=== PATIENT | female | born 1965 | race Caucasian/White ===

== ENCOUNTER 2017-04-28 04:28 | Emergency (ER) | payer MEDICARE, OTHER ==
[~2017-04-28] VITALS: Ht 152.4 cm; Wt 62.0 kg
[2017-04-28 04:30] VITALS: Ht 152.4 cm; Wt 62.0 kg
[2017-04-28 05:52] LABS: BASOPHIL # 0.1 10^3/ul (0.0-0.1); EOSINOPHILS # 0.2 10^3/ul (0.0-0.5); EOSINOPHILS % 4.2 % (0.0-7.0); HEMATOCRIT 31.6 % (37.0-47.0); HEMOGLOBIN 10.3 g/dl (12.0-16.0); LYMPHOCYTES # 0.6 10^3/ul (0.8-2.9); LYMPHOCYTES % 11.5 % (15.0-51.0); MEAN CORPUSCULAR HEMOGLOBIN 29.4 pg (29.0-33.0); MEAN CORPUSCULAR HGB CONC 32.6 g/dl (32.0-37.0); MEAN CORPUSCULAR VOLUME 90.3 fl (82.0-101.0); MEAN PLATELET VOLUME 8.5 fl (7.4-10.4); MONOCYTE # 0.6 10^3/ul (0.3-0.9); MONOCYTES % 10.6 % (0.0-11.0); NEUTROPHILS % 72.3 % (39.0-77.0); PLATELET COUNT 214 10^3/UL (140-415); RED CELL DISTRIBUTION WIDTH 14.3 % (11.5-14.5); WHITE BLOOD COUNT 5.2 10^3/ul (4.8-10.8)
[2017-04-28 06:09] LABS: CALCIUM 10.7 mg/dl (8.4-10.2); CREATININE 5.61 mg/dl (0.44-1.00); POTASSIUM 4.7 mmol/L (3.5-5.1)
[2017-04-28 06:12] LABS: INR 0.91; PROTIME 12.3 Sec (12.2-14.2)
[2017-04-28 06:13] LABS: PARTIAL THROMBOPLASTIN TIME 37.5 Sec (25.0-35.0)
[2017-04-28] MEDS ORDERED: ALPR0.254 PO (06:42)
[2017-04-28] MEDS ORDERED: CLON-379 PO (06:42)
[2017-04-28] MEDS ORDERED: IPRA3AMP INHALATION (06:42)
[2017-04-28] MEDS ORDERED: GABA300C16 PO (06:42)
[2017-04-28] MEDS ORDERED: ISOS30TA5 PO (06:42)
[2017-04-28] MEDS ORDERED: MINO2.5T16 PO (06:42)
[2017-04-28] MEDS ORDERED: AMIT50TA3 PO (06:42)
[2017-04-28] MEDS ORDERED: NIFE60TA36 PO (06:42)
[2017-04-28] MEDS ORDERED: CALC0.255 PO (06:42)
[2017-04-28] MEDS ORDERED: ROPI0.2530 PO (06:42)
[2017-04-28] MEDS ORDERED: BENZ1LOZ52 MM (06:42)
[2017-04-28] MEDS ORDERED: MINE133E23 PR (06:42)
[2017-04-28] MEDS ORDERED: TRAM-40 PO (06:42)
[2017-04-28] MEDS ORDERED: INSU100C SQ (06:42)
[2017-04-28] MEDS ORDERED: ALBU18HF INHALATION (06:42)
[2017-04-28] MEDS ORDERED: SENN-36 PO (06:42)
[2017-04-28] MEDS ORDERED: LISI40TA9 PO (06:42)
[2017-04-28] MEDS ORDERED: VIT1TABL46 PO (06:42)
[2017-04-28] MEDS ORDERED: HYDR-3671 PO (06:42)
[2017-04-28] MEDS ORDERED: METO25TA4 PO (06:42)
[2017-04-28] MEDS ORDERED: BISA10SU18 RC (06:42)
[2017-04-28] MEDS ORDERED: TEMA15CA PO (06:42)
[2017-04-28] MEDS ORDERED: ASPI-664 PO (06:42)
[2017-04-28] MEDS ORDERED: LEVEM SC (06:42)
[2017-04-28] MEDS ORDERED: FURO80TA3 PO (06:42)
[2017-04-28] MEDS ORDERED: AMLO-147 PO (06:42)
[2017-04-28] MEDS ORDERED: FER325 PO (06:42)
[2017-04-28] MEDS ORDERED: HYDR2TAB3 PO (06:42)
[2017-04-28] MEDS ORDERED: MAGN296S PO (06:42)
[2017-04-28] MEDS ORDERED: LIDOCAINE 2%/EPI MPF (SDV) 20 ML VIAL INJ ONE (07:00)
[2017-04-28] MEDS ORDERED: OXYCODONE/ACETAMINOPHEN (5/325) TAB PO ONE (08:30)
[2017-04-28 08:35] VITALS: BP 146/65; PULSE 80; RESP 18; TEMP 98.4
--- NOTE | 2017-04-28 08:49 | ERA ---
ER Documentation Chief Complaint Date/Time DATE: 04/28/17 TIME: 08:39 Chief Complaint bib ra from [facility] for left upper arm shunt bleed, dialysis yester HPI 52-year-old woman with a history of end-stage kidney disease hemodialysis dependent presents with left upper extremity AV fistula bleeding. Her last dialysis was 2 days ago and she is due today. She states she has had similar bleeding in the past which required suture ligation. She denies fevers or chills, no paresis or paresthesias, no chest pain or shortness of breath, no loss of consciousness or dizziness. ROS All systems reviewed and are negative except as per history of present illness. Medications Home Meds Reported Medications Albuterol Sulfate* (Ventolin HFA*) 18 Gm Hfa.aer.ad, 2 PUFF INHALATION Q6H for PREVENTION OF BRONCHOSPASM, #1 INHALER 04/28/17 Tramadol Hcl* (Ultram*) 50 Mg Tablet, 50 MG PO Q4H WHILE AWAKE Y for PAIN LEVEL 6-10, TAB 04/28/17 Temazepam* (Temazepam*) 15 Mg Capsule, 15 MG PO Q24H Y for INSOMNIA, CAP 04/28/17 Sennosides* (Senokot*) 8.6 Mg Tablet, 1 TAB PO BID for CONSTIPATION, TAB 04/28/17 Calcitriol* (Rocaltrol*) 0.25 Mcg Capsule, 0.25 MCG PO DAILY for HYPERPARATHYROIDISM, CAP 04/28/17 Ropinirole Hcl* (Requip*) 0.25 Mg Tablet, 0.25 MG PO HS for PARKINSON'S DISEASE , TAB 04/28/17 Vitamin B Complex* (Vitamin B Complex*) 1 Each Tablet, 1 TAB PO DAILY, TAB 04/28/17 Minoxidil* (Lonitin*) 2.5 Mg Tab, 5 MG PO DAILY for HTN Hold for SBP<= 110, TAB 04/28/17 Metoprolol Tartrate* (Lopressor*) 25 Mg Tablet, 25 MG PO BID for HTN HOLD FOR SBP<=110 orHR<60, #60 TAB 04/28/17 Magnesium Citrate* (Citrate Of Magnesia*) 296 Ml Solution, 300 ML PO Q24H for CONSTIPATION, #1 BOTTLE 04/28/17 Lisinopril* (Lisinopril*) 40 Mg Tablet, 40 MG PO DAILY for HTN, #30 TAB 04/28/17 Insulin Detemir (Levemir) 100 Unit/1 Ml Vial, 10 UNIT SC for DIABETES MELLITUS, VIAL 04/28/17 Isosorbide Mononitrate* (Isosorbide Mononitrate*) 30 Mg Tab.er.24h, 30 MG PO DAILY for ANGINA HOLD FOR SBP<=110, TAB 04/28/17 Hydralazine Hcl* (Hydralazine Hcl*) 25 Mg Tab, 25 MG PO Q8 for HTN, #90 TAB 04/28/17 Insulin Lispro (Humalog) 100 Unit/1 Ml Cartridge, 3 UNIT SQ BEFORE MEALS for DIABETES MELLITUS 04/28/17 Gabapentin* (Gabapentin*) 300 Mg Capsule, 300 MG PO Q6H for NEUROPATHY, #60 CAP 04/28/17 Furosemide* (Furosemide*) 80 Mg Tablet, 80 MG PO BID for CHF, #60 TAB 04/28/17 Mineral Oil* (Fleet* Mineral Oil Enema) 133 Ml Oil, 133 ML UT NEEDED Y for CONSTIPATION, ENEMA 04/28/17 Ferrous Sulfate* (Ferrous Sulfate*) 325 Mg Tabec, 325 MG PO DAILY for SUPPLEMENT , TAB 04/28/17 Ipratropium-Albuterol (Ipratropium-Albuterol) 0.5-3 Mg/3 Ml Ampul.neb, 3 ML INHALATION Q4 for SHORTNESS OF BREATH, #30 VIAL 04/28/17 Bisacodyl (Laxative Suppository) 10 Mg Supp.rect, 10 MG RC Q24H Y for PRN, SUPP.RECT 04/28/17 Hydromorphone Hcl* (Hydromorphone Hcl*) 2 Mg Tablet, 2 MG PO Q4H Y for PAIN, TAB 04/28/17 Clonidine Hcl* (Clonidine Hcl*) 0.1 Mg Tab, 0.1 MG PO BID Y for HTN, TAB 04/28/17 Benzocaine/Menthol* (Cepacol* Sore Throat Lozenges) 1 Each Lozenge, 1 EACH MM Q2H Y for ORE THROAT, LOZENGE 04/28/17 Aspirin* (Aspirin* EC) 81 Mg Tablet.dr, 81 MG PO DAILY for CVA Prophylaxis, TAB 04/28/17 Amlodipine Besylate* (Amlodipine Besylate*) 10 Mg Tablet, 10 MG PO QHS for HTN, #30 TAB 04/28/17 Amitriptyline Hcl* (Amitriptyline Hcl*) 50 Mg Tablet, 50 MG PO QHS for DEPRESSION, #30 TAB 04/28/17 Alprazolam* (Alprazolam*) 0.25 Mg Tablet, 0.25 MG PO TID Y for ANXIETY, TAB 04/28/17 Nifedipine* (Adalat CC*) 60 Mg Tablet.sa, 60 MG PO BID for HTN, #60 TAB.SA 04/28/17 Allergies Allergies: Coded Allergies: No Known Allergy (Unverified , 04/28/17) PMhx/Soc End-stage kidney disease, hypertension, obesity, COPD, CAD, Diabetes mellitus History of Surgery: No Anesthesia Reaction: No Hx Neurological Disorder: No Hx Respiratory Disorders: No Hx Cardiac Disorders: Yes (HTN) Hx Psychiatric Problems: No Hx Miscellaneous Medical Probl: Yes (DM, Dialysis ) Hx Alcohol Use: No Hx Substance Use: No Hx Tobacco Use: No Smoking Status: Never smoker FmHx Family History: No diabetes Physical Exam Vitals Vital Signs Date Time Temp Pulse Resp B/P Pulse Ox O2 Delivery O2 Flow Rate FiO2 04/28/17 06:30 81 18 134/80 99 Room Air 04/28/17 04:30 98.7 87 18 132/64 92 Physical Exam GENERAL: Well-developed, well-nourished, well-hydrated, in no apparent distress , looks nontoxic in appearance HEENT: Moist mucous membranes, pink conjunctiva, no cervical spine tenderness or step-off deformities, no goiter, no jaundice or icterus, extraocular movements intact without pain. No submandibular induration, and no pharyngeal erythema NEURO: Alert and oriented 3, cranial nerves II through XII intact bilaterally, pupils equal round reactive to light, no focal deficits or facial asymmetry, sensation intact distally Strength 5/5 in upper and lower extremities bilaterally CARDIAC: Regular rate and rhythm, no murmurs rubs or gallops LUNGS: Clear bilaterally no wheezing crackles or stridor ABDOMEN: Soft nontender, no guarding, no rigidity, no rebound, no psoas sign no obturator sign. Normoactive bowel sounds SKIN: Warm and dry to touch, no abrasions, contusions, or hematomas, no lacerations, no ecchymosis, no target lesions, and without ulcers EXTREMITIES: Punctate pulsatile bleeding to the left upper extremity at the AV fistula. Distal pulses equal bilateral PSYCH: Normal affect without agitation or irritability Result Diagram: 04/28/1752404/28/17524 Results 24 hrs Laboratory Tests Test 04/28/17 05:16 04/28/17 05:25 Prothrombin Time 12.3Sec Prothrombin Time Ratio 1.0 INR International Normalized Ratio 0.91 Activated Partial Thromboplast Time 37.5Sec White Blood Count 5.210^3/ul Red Blood Count 3.5010^6/ul Hemoglobin 10.3g/dl Hematocrit 31.6% Mean Corpuscular Volume 90.3fl Mean Corpuscular Hemoglobin 29.4pg Mean Corpuscular Hemoglobin Concent 32.6g/dl Red Cell Distribution Width 14.3% Platelet Count 72736^3/UL Mean Platelet Volume 8.5fl Neutrophils % 72.3% Lymphocytes % 11.5% Monocytes % 10.6% Eosinophils % 4.2% Basophils % 1.0% Nucleated Red Blood Cells % 0.0/100WBC Neutrophils # (Manual) 3.810^3/ul Lymphocytes # 0.610^3/ul Monocytes # 0.610^3/ul Eosinophils # 0.210^3/ul Basophils # 0.110^3/ul Nucleated Red Blood Cells # 0.010^3/ul Sodium Level 137mmol/L Potassium Level 4.7mmol/L Chloride Level 91mmol/L Carbon Dioxide Level 31mmol/L Anion Gap 20 Blood Urea Nitrogen 47mg/dl Creatinine 5.61mg/dl Glucose Level 246mg/dl Calcium Level 10.7mg/dl Current Medications Medications (Trade) Dose Ordered Sig/Hayley Route PRN Reason Start Time Stop Time Status Last Admin Dose Admin Lidocaine/ Epinephrine (Xylocaine 2%/ Epi Mpf(Sdv)) 20 ml ONCE ONCE INJ 04/28/17 07:00 04/28/17 07:01 DC Oxycodone/ Acetaminophen (Percocet (5/ 325)) 1 tab ONCE ONCE PO 04/28/17 08:30 04/28/17 08:31 DC 04/28/17 08:29 Procedures/MDM A firm, compression dressing was applied circumferentially to the left upper extremity for over an hour although this was unsuccessful. Patient had continued squirting pulsatile bleeding which required suture ligation. I placed 1 x 3-0 nonabsorbable suture just proximal to the bleeding vessel with success. Patient had no further bleeding and there was palpable blood flow through the AV fistula post ligation. CBC was unremarkable with a hemoglobin of 10, electrolytes revealed renal failure,Otherwise unremarkable. Procedure note: Suture ligation through the left upper extremity bleeding AV fistula. Site was inspected and cleansed by me, come pressure dressing was attempted but failed, I placed 1 nonabsorbable suture just proximal to the bleeding vessel which stopped all bleeding. Upper extremity was dressed again with gauze circumferentially and patient is cleared to undergo hemodialysis later today as scheduled. Critical Care: Time: 32 minutes, this was time separate from other billable procedures. Treatments/Evaluations: Close monitoring and treatment of unstable vital signs, cardiorespiratory, and neurologic status, while maintaining tight balance of fluid, respiratory, and cardiac interventions. Differential diagnoses considered, included but not limited to acute coronary syndrome, pulmonary embolism, aortic dissection, abdominal aortic aneurysm, sepsis, stroke, meningitis, encephalitis, pneumonia, appendicitis, cholecystitis , bowel obstruction, pyelonephritis, nephrolithiasis, cystitis, as well as metabolic, hematologic, and electrolyte abnormalities. As well as abscess, cellulitis, fractures, and dislocations. Patient feels much better at this time, and vital signs are normal, symptoms have improved. I did give strict instructions to return to the ED if symptoms continue or worsen, patient will otherwise follow-up with primary care physician. Patient understood instructions and agreed to plan. Disclaimer: Inadvertent spelling and grammatical errors are likely due to EHR/ dictation software use and do not reflect on the overall quality of patient care. Also, please note that the electronic time recorded on this note does not necessarily reflect the actual time of the patient encounter. Departure Diagnosis: Primary Impression: Right thigh hemodialysis AV fistula bleed Qualified Code: T82.838A - Hemorrhage of hemodialysis arteriovenous fistula of right thigh, initial encounter Additional Impression: End stage kidney disease Condition: Good Patient Instructions: Dialysis Shunt (Fistula) Bleeding Referrals: BRIELLE SALMON MD (PCP) KASIE REN MD Apr 28, 2017 08:49
== END 2017-04-28 08:35 | disposition home or self-care (01) ==
LOC: E/R 04:28
DX: T82.838A Hemorrhage due to vascular prosthetic devices, implants and grafts, initial encounter (principal); I12.0 Hypertensive chronic kidney disease with stage 5 chronic kidney disease or end stage renal disease; N18.6 End stage renal disease; E66.9 Obesity, unspecified; J44.9 Chronic obstructive pulmonary disease, unspecified; I25.10 Atherosclerotic heart disease of native coronary artery without angina pectoris; E11.22 Type 2 diabetes mellitus with diabetic chronic kidney disease; Y82.8 Other medical devices associated with adverse incidents; Z99.2 Dependence on renal dialysis; Z79.4 Long term (current) use of insulin; Z79.82 Long term (current) use of aspirin; Z68.26 Body mass index [BMI] 26.0-26.9, adult
CPT/HCPCS: 80048; 85025; 85610; 85730

== ENCOUNTER 2017-09-26 20:13 | Emergency (ER) | END 2017-09-27 00:12 | disposition home or self-care (01) ==

== ENCOUNTER 2017-10-10 05:14 | Inpatient (IN) | END 2017-11-03 00:30 | DRG 853 ==

== ENCOUNTER 2018-02-17 16:40 | Inpatient (IN) | END 2018-02-22 14:00 | DRG 70 ==

== ENCOUNTER 2018-03-27 04:57 | Inpatient (IN) | END 2018-04-05 00:25 | DRG 640 ==

== ENCOUNTER 2018-05-17 00:05 | Inpatient (IN) | END 2018-05-23 19:00 | DRG 689 ==

== ENCOUNTER 2018-05-27 16:31 | Inpatient (IN) | END 2018-05-31 15:30 | DRG 291 ==

== ENCOUNTER 2018-11-02 19:27 | Observation (INO) | payer MEDICARE, OTHER ==
[~2018-11-02] VITALS: Ht 152.4 cm; Wt 60.5 kg
[~2018-11-02 19:27] MED LIST: ACET325T45 PO; AMLO5TAB4 PO; ASPI-903 PO; ATOR20TA38 PO; BEN25 PO; CLON-379 PO; DICL100G37 TOP; HALO5VIA16 IM*; HYDR-3672 PO; HYDR-4011; IPRA3AMP29 INHALATION; LANT3I SC; LIDOCAINE CREAM 4% TP; LORA0.5T PO; LYR75 PO; NOVO3I SC; PANT40TA4 PO; ROPI1TAB PO; SEVE800T7 PO; ZOLP5TAB7 PO
--- NOTE | 2018-11-02 19:50 | ERD ---
ER Documentation Chief Complaint Chief Complaint BIB RA FOR EVAL OF ALOC. PT FINISHED HD. 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 HPI 53-year-old female history of diabetes, hypertension, hyperlipidemia, end-stage renal disease on dialysis to the ED after completion of her dialysis for evaluation of lethargy and altered mental status. Patient admits to taking Downs, Ativan and Benadryl earlier today. Patient denies headache, visual changes, focal weakness or numbness. No chest pain, palpitations or shortness of breath. Denies abdominal pain, nausea or vomiting. No fevers or chills. Denies depression, hallucinations or suicidal intent. Patient insists she feels fine and wants to be discharged but falls asleep while talking but awakens with gentle tactile stimulation. ROS All systems reviewed and are negative except as per history of present illness. Medications Home Meds Reported Medications Lidocaine HCl (Aspercreme) 76.5 Gm Cream..g., 76.5 GM TP 11/03/18 Hydrocortisone* Topical (Hydrocortisone* Topical) 0.5%- 28.35 Gm Oint, 1 APPLIC TOP BID, TUB 1% hydrocortisone cream 11/03/18 Melatonin-Pyridoxine Hcl (Melatonin) 1-10 Mg Tablet, 1 TAB PO HS, TAB 11/03/18 Hydroxyzine Hcl* (Hydroxyzine Hcl*) 25 Mg Tablet, 25 MG PO QID, #40 TAB 11/03/18 Pantoprazole* (Pantoprazole*) 40 Mg Tablet.dr, 40 MG PO AC BREAKFAST, TAB 11/02/18 Furosemide* (Furosemide*) 40 Mg Tablet, 40 MG PO NEEDED, TAB 11/02/18 Zolpidem Tartrate* (Zolpidem Tartrate*) 5 Mg Tablet, 5 MG PO QHS PRN for INSOMNIA, #30 TAB 11/02/18 Diclofenac Sodium* (Voltaren* Gel) 1% -100 Gm Gel, 1 GM TOP Q6H, #1 TUB 11/02/18 Ropinirole Hcl* (Ropinirole Hcl*) 1 Mg Tablet, 1 MG PO TID, TAB 11/02/18 Sevelamer Hcl* (Renagel*) 800 Mg Tablet, 1600 MG PO WITH MEALS, TAB 11/02/18 Multivit/Ca Carb/B Cmplx/Fa* (Kymberly-Marlon*) 1 Tab Tab, 1 TAB PO BID, TAB 11/02/18 Insulin Aspart (Novolog Mix (70/30)) 100 Units/Ml Soln, 2 UNITS SC WITH MEALS, EA 2 UNITS-QAM AND 2-3 UNITS-QPM 11/02/18 Hydrocodone/Acetaminophen (Downs 5-325 Tablet) 1 Each Tablet, 1 EACH PO Q6H PRN for DIRECTED, TAB 11/02/18 Pregabalin* (Lyrica*) 75 Mg Capsule, 75 MG PO BID, CAP 11/02/18 Lorazepam* (Lorazepam*) 0.5 Mg Tablet, 0.5 MG PO Q8 PRN for ANXIETY, TAB 11/02/18 Lidocaine (Lmx 4) 30 Gm Cream.gm., 1 TP TID 11/02/18 Insulin Glargine* (Lantus*) 100 Unit/Ml Soln, 12 UNIT SC QHS, #1 VIAL 11/02/18 Ipratropium-Albuterol (Ipratropium-Albuterol) 0.5-3 Mg/3 Ml Ampul.neb, 3 ML INHALATION Q2H, #30 VIAL 11/02/18 Hydralazine Hcl* (Hydralazine Hcl*) 50 Mg Tab, 50 MG PO Q8H PRN for PRN, #60 TAB 11/02/18 Duloxetine Hcl* (Cymbalta*) 30 Mg Capsule.dr, 30 MG PO DAILY, CAP 11/02/18 Cyclobenzaprine Hcl* (Cyclobenzaprine Hcl*) 10 Mg Tablet, 10 MG PO Q12H, #60 TAB 11/02/18 Clonidine Hcl* (Clonidine Hcl*) 0.1 Mg Tab, 0.1 MG PO Q6 PRN for PRN, TAB 11/02/18 Diphenhydramine Hcl* (Benadryl*) 25 Mg Cap, 25 MG PO Q6H PRN for ITCHING, CAP TAKE 1 OR 2 TAB 11/02/18 Atorvastatin Calcium* (Atorvastatin Calcium*) 20 Mg Tablet, 20 MG PO QHS, #30 TAB 11/02/18 Aspirin* (Aspirin* EC) 81 Mg Tablet.dr, 81 MG PO DAILY, TAB 11/02/18 Amlodipine Besylate* (Norvasc*) 5 Mg Tablet, 5 MG PO BID, TAB 3/14/19 Acetaminophen* (Acetaminophen*) 325 Mg Tablet, 650 MG PO Q6H PRN for PAIN AND OR ELEVATED TEMP, #30 TAB 11/02/18 Discontinued Reported Medications [Lidocaine Cream 4%] No Conflict Check, 1 APPLIC TP DAILY APPLY TO CHEST WALL TOPICALLY 05/24/18 Hydralazine Hcl* (Hydralazine Hcl*) 50 Mg Tab, 50 MG PO Q8, #90 TAB HOLD IF SBP<110 OR HR<60 05/24/18 Haloperidol Lactate (Haloperidol Lactate) 5 Mg/1 Ml Vial, 2 MG IM* Q6H, VIAL 05/24/18 Diphenhydramine Hcl* (Benadryl*) 25 Mg Cap, 25 MG PO Q6H PRN for ITCHING, CAP 05/24/18 Amlodipine Besylate* (Norvasc*) 5 Mg Tablet, 5 MG PO DAILY, TAB HOLD IF SBP<110 OR HR<60 05/24/18 Lorazepam* (Lorazepam*) 0.5 Mg Tablet, 0.5 MG PO Q8 PRN for ANXIETY, TAB 05/24/18 Hydrocodone/Acetaminophen (Downs 5-325 Tablet) 1 Each Tablet, 1 EACH Q6H PRN for PAIN LEVEL 8-05/31, TAB TAKE VIA DH-TUBE 05/24/18 Pantoprazole* (Pantoprazole*) 40 Mg Tablet.dr, 40 MG PO AC BREAKFAST, TAB 05/24/18 Diclofenac Sodium* (Voltaren* Gel) 1% -100 Gm Gel, 2 GM TOP Q6H, #1 TUB 05/24/18 Ropinirole Hcl* (Ropinirole Hcl*) 1 Mg Tablet, 1 MG PO NEEDED, TAB 02/15/18 Sevelamer Carbonate* (Renvela*) 800 Mg Tablet, 2.4 GM PO WITH MEALS, TAB 02/15/18 Pregabalin* (Lyrica*) 75 Mg Capsule, 75 MG PO BID, CAP 02/15/18 Insulin Aspart* (Novolog Insulin Pen*) 100 Unit/Ml Soln, 0 SC .SLIDING SCALE AC, EA IF BS 70-150=0 UNIT, 151-200=2 UNITS, 201-250=4 UNITS, 251-300=6 UNITS, 301-350=8 UNITS, 351-400=10 UNITS IF BS>400 GIVE 12 UNITS THEN CALL 02/15/18 Ipratropium-Albuterol (Ipratropium-Albuterol) 0.5-3 Mg/3 Ml Ampul.neb, 3 ML INHALATION Q6 PRN for WHEEZING AND SOB, #30 VIAL 02/15/18 Atorvastatin Calcium* (Atorvastatin Calcium*) 20 Mg Tablet, 20 MG PO QHS, #30 TAB 02/15/18 Zolpidem Tartrate* (Zolpidem Tartrate*) 5 Mg Tablet, 5 MG PO QHS PRN for INSOMNIA, #30 TAB 02/15/18 Acetaminophen* (Acetaminophen*) 325 Mg Tablet, 650 MG PO Q6H PRN for MILD PAIN LEVEL 1-3, #30 TAB AND FOR FEVER T>101F 09/26/17 Insulin Glargine* (Lantus*) 100 Unit/Ml Soln, 8 UNIT SC QHS, #1 VIAL 09/26/17 Clonidine Hcl* (Clonidine Hcl*) 0.1 Mg Tab, 0.1 MG PO Q6 PRN for HTN, TAB IF SBP>160 09/26/17 Aspirin* (Aspirin* Chew) 81 Mg Tab.chew, 81 MG PO DAILY, TAB.CHEW 09/26/17 Allergies Allergies: Coded Allergies: No Known Allergy (Unverified , 11/02/18) PMhx/Soc Reviewed in chart. As per HPI. Anesthesia Reaction: No Hx Neurological Disorder: Yes (PARKINSONS, CVA) Hx Respiratory Disorders: No Hx Cardiac Disorders: Yes (HTN, CAD, CHF) Hx Psychiatric Problems: Yes (HX MAJOR DEPRESSIVE DISORDER) Hx Miscellaneous Medical Probl: Yes Hx Alcohol Use: No Hx Substance Use: No Hx Tobacco Use: No FmHx No family history relevant to presenting complaint Physical Exam Vitals Vital Signs Date Temp Pulse Resp B/P (MAP) Pulse Ox O2 O2 Flow FiO2 Time Delivery Rate 11/02/18 69 14 147/62 100 Non 15.0 20:30 (90) Rebreather 11/02/18 100 15.0 20:18 11/02/18 Nasal 4 19:45 Cannula 11/02/18 71 12 157/69 100 Nasal 4.0 19:42 (98) Cannula 11/02/18 98.1 74 16 98/50 (66) 56 19:35 Physical Exam Const: Lethargic, moderate distress. Head: Atraumatic Eyes: Normal Conjunctiva ENT: Normal External Ears, Nose and Mouth. Neck: Full range of motion. No meningismus. Resp: Clear to auscultation bilaterally Cardio: Regular rate and rhythm, no murmurs Abd: Soft, non tender, non distended. Normal bowel sounds Skin: No petechiae or rashes Back: No midline or flank tenderness Ext: Left upper extremity: AV shunt with palpable thrill. Bilateral lower extremity: 1+ edema. Neur: Lethargic but arousable. Cranial nerves II through XII are grossly inta ct. Motor and sensory equal bilaterally. Psych: Anxious but not depressed. Result Diagram: 11/03/18 1601 11/03/18 0650 Results 24 hrs Laboratory Tests Test 11/02/18 19:48 11/02/18 19:51 11/02/18 19:54 11/02/18 19:55 Bedside Glucose 96 mg/dL Blood Gas Blood arterial Specimen Source Arterial Blood 11/02/2018 8:00:4 Date Drawn 2 PM Arterial Blood 7.441 pH (Temp corrected) Arterial Blood 45.3 mmhg pCO2 (Temp correct) Arterial Blood 54.3 mmHG pO2 (Temp corrected) Arterial Blood 30.1 mmol/L HCO3 Arterial Blood 5.4 mmol/L Base Excess Arterial Blood 84.8 mmHG Oxygen Saturatio n Harman Test N/A Arterial Blood Right HEEL Gas Puncture Site Arterial 0.5 % Blood Carboxyhem oglobin Arterial Blood 0.2 % Methemoglobin Blood Gas A-a O2 128.1 mmHg Differential Oxyhemoglobin 84.2 % Percent Blood Gas 37.0 C Temperature Blood Gas NASAL CANNULA Modality FiO2 33.0 % Blood Gas Amalia CARTWRIGHT MD Critical Value Read Back Blood Gas [place] Notified Whom Blood Gas 11/02/2018 8:12:4 Notified Time 9 PM Hepatitis B NEGATIVE Surface Antigen White Blood 6.4 10^3/ul Count Red Blood Count 2.89 10^6/ul Hemoglobin 8.1 g/dl Hematocrit 26.3 % Mean Corpuscular 91.0 fl Volume Mean Corpuscular 28.0 pg Hemoglobin Mean Corpuscular 30.8 g/dl Hemoglobin Deedee nt Red Cell 16.8 % Distribution Width Platelet Count 194 10^3/UL Mean Platelet 9.5 fl Volume Immature 1.400 % Granulocytes % Neutrophils % 72.0 % Lymphocytes % 11.1 % Monocytes % 13.9 % Eosinophils % 0.8 % Basophils % 0.8 % Nucleated Red 1.2 /100WBC Blood Cells % Immature 0.090 10^3/ul Granulocytes # Neutrophils # 4.6 10^3/ul Lymphocytes # 0.7 10^3/ul Monocytes # 0.9 10^3/ul Eosinophils # 0.1 10^3/ul Basophils # 0.1 10^3/ul Nucleated Red 0.1 10^3/ul Blood Cells # Sodium Level 140 mmol/L Potassium Level 4.1 mmol/L Chloride Level 97 mmol/L Carbon Dioxide 30 mmol/L Level Anion Gap 13 Blood Urea 30 mg/dl Nitrogen Creatinine 3.24 mg/dl Est Glomerular 15 mL/min Filtrat Rate mL/min Glucose Level 97 mg/dl Calcium Level 8.9 mg/dl Total Bilirubin 0.2 mg/dl Direct Bilirubin 0.00 mg/dl Indirect 0.2 mg/dl Bilirubin Aspartate Amino 36 IU/L Transf (AST/SGOT ) Alanine 35 IU/L Aminotransferase (ALT/SGPT) Alkaline 357 IU/L Phosphatase Total Protein 7.4 g/dl Albumin 4.1 g/dl Globulin 3.30 g/dl Albumin/Globulin 1.24 Ratio Salicylates < 1.0 mg/dl Level Acetaminophen < 10.0 ug/ml Level Ethyl Alcohol < 10.0 mg/dl Level Current Medications Medications Dose Sig/Hayley Start Time Status Last (Trade) Ordered Route PRN Stop Time Admin Dose Reason Admin Naloxone 0.2 mg ONCE ONCE 11/02/18 DC 11/02/18 HCl IV 20:00 20:04 (Narcan) 11/02/18 20:01 Procedures/MDM DOCUMENTS REVIEWED: ED nurse, ED, prior records EKG: Time: 20:21. His rhythm. Ventricular rate 69. Normal FL and QRS. No acute ST segment elevation or depression. No ectopy. My Interpretation IMAGING: PROCEDURE: CT Brain without contrast. CLINICAL INDICATION: Altered mental status TECHNIQUE: A CT of the brain was performed on a multidetector CT scanner utilizing axial imaging from the skull base through the vertex without IV contrast. Multiplanar reformatted images were made. Images were reviewed on a PACS workstation. The CTDIvol is 37 mGy and the DLP is 634 mGycm. DICOM images are available. One or more of the following dose reduction techniques were utilized: 1.) Automated exposure control 2.) Adjustment of the mA +/- kV according to patient's size 3.) Use of iterative reconstruction technique. COMPARISON: Head CT May 16, 2018 FINDINGS: There is moderate diffuse cerebral volume loss with sulcal and ventricular dilatation. No discrete extra-axial fluid collection or masses seen. Ventricles are in the midline and of normal configuration. Again noted is an infarct invol ving delgado and white matter at the junction of the superior right occipital lobe and the inferior right parietal lobe. Mild periventricular white matter disease is seen in both cerebral hemispheres. There is no associated mass effect. There is preservation of normal delgado-white differentiation. No intracranial hemorrhage is seen. There is normal aeration of the visualized paranasal sinuses. IMPRESSION: Atrophy. White matter disease compatible with chronic small vessel ischemia. 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 No intracranial hemorrhage, mass or evidence of acute transcortical infarct. .John Torrez MD, MD Date Time Electronically viewed and signed by .John Torrez MD, MD on 11/02/2018 21:32 .A/ [employer] DECISION MAKIN-year-old female history of diabetes, hypertension, hyperlipidemia, end-stage renal disease on dialysis to the ED after completion of her dialysis for evaluation of lethargy and altered mental status. BC revea ls anemia consistent with prior results but no leukocytosis or thrombocytopenia. Chemistry significant for elevated BUN/creatinine consistent with the patient's end-stage renal disease but no electrolyte abnormalities or hyperglycemia. EKG is negative for dysrhythmia or ischemic changes. CT of the brain to evaluate for ischemia, hemorrhage, hydrocephalus and mass is unremarkable. Chest x-ray n egative for pneumonia or congestive heart failure. Patient with acute encephalopathy secondary to accidental, prescription, multidrug overdose. Significant hypoxia with O2 saturations as low as 50% resolved with supplemental oxygen. Mental status improved with Narcan 0.2 mg IV. After 3 hours of observation patient is still lethargic and becomes extremely hypoxic with O2 saturations down to the 70s when supplemental oxygen is discontinued and will require admission for further observation. No evidence of suicidal ideations or intent hence tele-psychiatry consultation is not indicated at this time. Admit to telemetry for further evaluation and management. CALLS/CONSULTS: Time: 21:48, Dr. Durán. Deferred admission to the hospitalist PATIENT CARE TRANSITIONED: Time:Time: 22:17, Dr. Huffman. Counseled patient regarding diagnosis, diagnostic results and plan for admission. Patient very resistant to being admitted. Departure Diagnosis: Primary Impression: Acute encephalopathy Additional Impressions: Accidental overdose Encounter type: initial encounter Qualified Codes: T50.901A - Poisoning by unspecified drugs, medicaments and biological substances, accidental (unintentional), initial encounter Hypoxia End stage renal disease on dialysis Condition: Serious VANESSA CARTWRIGHT MD Nov 02, 2018 19:50
[2018-11-02] MEDS ORDERED: NALOXONE (0.4 MG/ML) INJ IV ONE (20:00)
[2018-11-02] MEDS ORDERED: ACET325T45 PO (20:39)
[2018-11-02] MEDS ORDERED: AMLO5TAB4 PO (20:40)
[2018-11-02] MEDS ORDERED: ASPI-817 PO (20:40)
[2018-11-02] MEDS ORDERED: BEN25 PO (20:41)
[2018-11-02] MEDS ORDERED: ATOR20TA38 PO (20:41)
[2018-11-02] MEDS ORDERED: CLON-379 PO (20:42)
[2018-11-02] MEDS ORDERED: CYCL10TA7 PO (20:42)
[2018-11-02] MEDS ORDERED: DULO30CA45 PO (20:43)
[2018-11-02] MEDS ORDERED: IPRA3AMP29 INHALATION (20:44)
[2018-11-02] MEDS ORDERED: HYDR-3672 PO (20:44)
[2018-11-02] MEDS ORDERED: LANT3I SC (20:45)
[2018-11-02] MEDS ORDERED: LORA0.5T PO (20:48)
[2018-11-02] MEDS ORDERED: LIDO30CR2 TP (20:48)
[2018-11-02] MEDS ORDERED: LYR75 PO (20:49)
[2018-11-02] MEDS ORDERED: HYDR-4011 PO (20:49)
[2018-11-02] MEDS ORDERED: NOVMIX SC (20:51)
[2018-11-02] MEDS ORDERED: NEPH PO (20:52)
[2018-11-02] MEDS ORDERED: SVL800C PO (20:52)
[2018-11-02] MEDS ORDERED: ROPI1TAB PO (20:53)
[2018-11-02] MEDS ORDERED: DICL100G37 TOP (20:54)
[2018-11-02] MEDS ORDERED: FURO40TA4 PO (20:55)
[2018-11-02] MEDS ORDERED: ZOLP5TAB7 PO (20:55)
[2018-11-02] MEDS ORDERED: PANT40TA4 PO (20:57)
[2018-11-02] MEDS ORDERED: ONDANSETRON 4 MG INJ IV PRN (23:00)
[2018-11-02] MEDS ORDERED: ACETAMINOPHEN 325 MG TAB PO PRN (23:00)
--- NOTE | 2018-11-02 23:56 | HP ---
Date/Time of Note Date/Time of Note DATE: 11/02/18 TIME: 23:56 Assessment/Plan VTE Prophylaxis Pharmacological prophylaxis: heparin Lines/Catheters IV Catheter Type (from Nrs): Saline Lock Assessment/Plan Result Diagram: 11/02/18195411/02/181954 Results 24hrs Laboratory Tests Test 11/02/18 19:48 11/02/18 19:51 11/02/18 19:55 Bedside Glucose 96 Blood Gas Specimen Source Blood arterial Arterial Blood Date Drawn 11/02/2018 8:00:42 PM Arterial Blood pH 7.441 (Temp corrected) Arterial Blood pCO2 45.3 H (Temp correct) Arterial Blood pO2 54.3 *L (Temp corrected) Arterial Blood HCO3 30.1 H Arterial Blood Base Excess 5.4 H Arterial Blood 84.8 L Oxygen Saturation Harman Test N/A Arterial Blood Gas Right HEEL Puncture Site Arterial 0.5 Blood Carboxyhemoglobin Arterial Blood Methemoglobin 0.2 Blood Gas A-a O2 128.1 H Differential Oxyhemoglobin Percent 84.2 L Blood Gas Temperature 37.0 Blood Gas Modality NASAL CANNULA FiO2 33.0 Blood Gas Critical Value Amalia CARTWRIGHT MD Read Back Blood Gas Notified Whom MA Blood Gas Notified Time 11/02/2018 8:12:49 PM White Blood Count 6.4 Red Blood Count 2.89 L Hemoglobin 8.1 L Hematocrit 26.3 L Mean Corpuscular Volume 91.0 Mean Corpuscular Hemoglobin 28.0 L Mean Corpuscular 30.8 L Hemoglobin Concent Red Cell Distribution Width 16.8 H Platelet Count 194 Mean Platelet Volume 9.5 Immature Granulocytes % 1.400 H Neutrophils % 72.0 Lymphocytes % 11.1 L Monocytes % 13.9 H Eosinophils % 0.8 Basophils % 0.8 Nucleated Red Blood Cells % 1.2 H Immature Granulocytes # 0.090 H Neutrophils # 4.6 Lymphocytes # 0.7 L Monocytes # 0.9 Eosinophils # 0.1 Basophils # 0.1 Nucleated Red Blood Cells # 0.1 H Sodium Level 140 Potassium Level 4.1 Chloride Level 97 Carbon Dioxide Level 30 Anion Gap 13 Blood Urea Nitrogen 30 H Creatinine 3.24 H Est Glomerular Filtrat 15 L Rate mL/min Glucose Level 97 Calcium Level 8.9 Total Bilirubin 0.2 Direct Bilirubin 0.00 Indirect Bilirubin 0.2 Aspartate Amino 36 Transf (AST/SGOT) Alanine 35 Aminotransferase (ALT/SGPT) Alkaline Phosphatase 357 H Total Protein 7.4 Albumin 4.1 Globulin 3.30 H Albumin/Globulin Ratio 1.24 Salicylates Level < 1.0 L Acetaminophen Level < 10.0 L Ethyl Alcohol Level < 10.0 H HPI/ROS Admit Date/Time Admit Date/Time PMH/Family/Social Past Medical History Past Surgical History Past Surgical Hx: other (see hpi) Family History Significant Family History: no pertinent family hx Social History Alcohol Use: other Smoking Status: Unknown if ever smoked Drug Use: other Exam Constitutional: other (no acute distress) Eyes: PERRL ENMT: nl external ears & nose Neck: supple Respiratory: normal air movement Cardiovascular: nl pulses Gastrointestinal: soft Extremities: normal pulses Medications Current Medications Ondansetron HCl (Zofran Inj) 4 mg ER BRIDGE PRN IV NAUSEA/VOMITING; Start 11/02/18 at 23:00; Stop 11/03/18 at 22:59 Acetaminophen (Tylenol Tab) 650 mg ER BRIDGE PRN PO .MILD PAIN 1-3 OR TEMP; Start 11/02/18 at 23:00; Stop 11/03/18 at 22:59 Coded Allergies: No Known Allergy (Unverified , 11/02/18) Past Surgical History Past Surgical Hx: other Family History Significant Family History: diabetes Social History Smoking Status: Unknown if ever smoked Exam/Review of Systems Vital Signs Vitals Vital Signs Date Temp Pulse Resp B/P (MAP) Pulse Ox O2 O2 Flow FiO2 Time Delivery Rate 11/02/18 100 Non 15.0 23:40 Rebreather 11/02/18 98.2 76 15 153/68 23:35 (96) MICHAELA HI MD Nov 02, 2018 23:56
[2018-11-03] VITALS (11 sets, daily range): BP systolic 123–176; BP diastolic 58–77; PULSE 62–81; RESP 16–19; Ht 152.4 cm; Wt 60.5 kg
[2018-11-03] MEDS ORDERED: ZOLPIDEM 5 MG TAB PO PRN ×2 (02:30→06:30)
[2018-11-03] MEDS ORDERED: DIPHENHYDRAMINE 25 MG CAP PO ONE (02:30)
[2018-11-03] MEDS ORDERED: GLUCOSE GEL 15 GRAM TUBE PO PRN ×2 (03:00)
[2018-11-03] MEDS ORDERED: GLUCOSE GEL 15 GRAM TUBE BUCCAL PRN (03:00)
[2018-11-03] MEDS ORDERED: DEXTROSE 50% 50 ML SYRINGE IV PRN ×2 (03:00)
[2018-11-03] MEDS ORDERED: GLUCAGON 1 MG INJ IM PRN (03:00)
[2018-11-03] MEDS: ROPINIROLE 1 MG TAB PO SCH ×3 (03:17→12:56)
[2018-11-03] MEDS: INSULIN ASPART [NOVOLOG] 3 ML PEN SC SCH ×5 (03:24→21:04)
[2018-11-03] MEDS ORDERED: HYDR-843 PO (04:58)
[2018-11-03] MEDS ORDERED: MELA1TAB9 PO (04:58)
[2018-11-03] MEDS ORDERED: LORAZEPAM 0.5 MG TAB PO ONE (05:00)
[2018-11-03] MEDS ORDERED: LIDO76.5 TP (05:01)
[2018-11-03] MEDS ORDERED: HC.5O30 TOP (05:01)
[2018-11-03] MEDS ORDERED: DICLOFENAC SODIUM 1% GEL 100 GM TUBE TP PRN (06:00)
[2018-11-03] MEDS ORDERED: LORAZEPAM 0.5 MG TAB PO PRN (06:30)
[2018-11-03] MEDS ORDERED: PANTOPRAZOLE (EC) 40 MG TAB PO SCH (07:25)
[2018-11-03] MEDS: SEVELAMER CARBONATE 800 MG TABLET PO SCH ×3 (08:44→17:31)
[2018-11-03] MEDS: AMLODIPINE 5 MG TAB PO SCH ×2 (08:46→20:37)
[2018-11-03] MEDS: PREGABALIN 75 MG CAP PO SCH ×2 (08:47→20:36)
[2018-11-03] MEDS: ALBUTEROL/IPRATROPIUM (NEB) 3 ML AMP INH PRN ×2 (08:52→15:05)
[2018-11-03] MEDS ORDERED: ASPERCREME WITH LIDOCAINE TOP PRN (09:00)
[2018-11-03] MEDS ORDERED: FUROSEMIDE 40 MG TAB PO SCH (09:00)
[2018-11-03] MEDS ORDERED: ASPIRIN (EC) 81 MG TAB PO SCH (09:00)
--- NOTE | 2018-11-03 15:12 | HP ---
Date/Time of Note Date/Time of Note DATE: 11/03/18 TIME: 15:04 Assessment/Plan VTE Prophylaxis Risk score (from Nsg)>0 risk: 3 SCD applied (from Nsg): Yes Pharmacological prophylaxis: other Lines/Catheters IV Catheter Type (from Nrsg): Saline Lock Urinary Cath still in place: No Assessment/Plan Hospital Course Assessment and plan: 53-year-old female prior history of diabetes, hypertension, high cholesterol, anxiety, end-stage renal disease on dialysis, questionable CHF who presents with altered mental status and lethargy after outpatient dialysis yesterday, likely secondary to polypharmacy. # AMS -likely secondary to outpatient [place], Ativan, Benadryl overuse. Patient more awake and alert now -Continue monitor for now, hold her home medicines until she becomes more alert which she is appearing to become now #: Diabetes: Follow-up A1c, continue insulin sliding scale #Hypertension: Stable, continue current medical #High cholesterol: Stable, continue statin #Anxiety: Again monitor for now # ESRD on HD -monitor for now, consider renal consult patient did receive radha lysis yesterday Result Diagram: 11/03/18 0650 11/03/18 0650 Results 24hrs Laboratory Tests Test 11/02/18 19:48 11/02/18 19:51 11/02/18 19:55 11/03/18 03:21 Bedside Glucose 96 215 Blood Gas Blood arterial Specimen Source Arterial Blood 11/02/2018 8:00:4 Date Drawn 2 PM Arterial Blood pH 7.441 (Temp corrected) Arterial Blood 45.3 H pCO2 (Temp correct) Arterial Blood 54.3 *L pO2 (Temp corrected) Arterial Blood 30.1 H HCO3 Arterial Blood 5.4 H Base Excess Arterial Blood 84.8 L Oxygen Saturation Harman Test N/A Arterial Blood Right HEEL Gas Puncture Site Arterial 0.5 Blood Carboxyhemo globin Arterial Blood 0.2 Methemoglobin Blood Gas A-a O2 128.1 H Differential Oxyhemoglobin 84.2 L Percent Blood Gas 37.0 Temperature Blood Gas NASAL CANNULA Modality FiO2 33.0 Blood Gas Amalia CARTWRIGHT MD Critical Value Read Back Blood Gas MIRANDA Notified Whom Blood Gas 11/02/2018 8:12:4 Notified Time 9 PM White Blood Count 6.4 Red Blood Count 2.89 L Hemoglobin 8.1 L Hematocrit 26.3 L Mean Corpuscular 91.0 Volume Mean Corpuscular 28.0 L Hemoglobin Mean Corpuscular 30.8 L Hemoglobin Concen t Red Cell 16.8 H Distribution Width Platelet Count 194 Mean Platelet 9.5 Volume Immature 1.400 H Granulocytes % Neutrophils % 72.0 Lymphocytes % 11.1 L Monocytes % 13.9 H Eosinophils % 0.8 Basophils % 0.8 Nucleated Red 1.2 H Blood Cells % Immature 0.090 H Granulocytes # Neutrophils # 4.6 Lymphocytes # 0.7 L Monocytes # 0.9 Eosinophils # 0.1 Basophils # 0.1 Nucleated Red 0.1 H Blood Cells # Sodium Level 140 Potassium Level 4.1 Chloride Level 97 Carbon Dioxide 30 Level Anion Gap 13 Blood Urea 30 H Nitrogen Creatinine 3.24 H Est Glomerular 15 L Filtrat Rate mL/min Glucose Level 97 Calcium Level 8.9 Total Bilirubin 0.2 Direct Bilirubin 0.00 Indirect 0.2 Bilirubin Aspartate Amino 36 Transf (AST/SGOT) Alanine 35 Aminotransferase (ALT/SGPT) Alkaline 357 H Phosphatase Total Protein 7.4 Albumin 4.1 Globulin 3.30 H Albumin/Globulin 1.24 Ratio Salicylates Level < 1.0 L Acetaminophen < 10.0 L Level Ethyl Alcohol < 10.0 H Level Test 11/03/18 06:50 11/03/18 08:20 11/03/18 12:43 White Blood Count 8.2 # Red Blood Count 2.59 L Hemoglobin 7.4 L Hematocrit 24.3 L Mean Corpuscular 93.8 Volume Mean Corpuscular 28.6 L Hemoglobin Mean Corpuscular 30.5 L Hemoglobin Concen t Red Cell 17.1 H Distribution Width Platelet Count 118 #L Mean Platelet 11.3 H Volume Immature 2.100 H Granulocytes % Neutrophils % 73.3 Lymphocytes % 9.6 L Monocytes % 13.4 H Eosinophils % 0.9 Basophils % 0.7 Nucleated Red 3.5 H Blood Cells % Immature 0.170 H Granulocytes # Neutrophils # 6.0 Lymphocytes # 0.8 Monocytes # 1.1 H Eosinophils # 0.1 Basophils # 0.1 Nucleated Red 0.3 H Blood Cells # Sodium Level 140 Potassium Level 5.0 Chloride Level 98 Carbon Dioxide 25 Level Anion Gap 17 H Blood Urea 42 #H Nitrogen Creatinine 4.23 H Est Glomerular 11 L Filtrat Rate mL/min Glucose Level 167 Calcium Level 8.2 L Bedside Glucose 135 128 HPI/ROS Admit Date/Time Admit Date/Time Hx of Present Illness 53-year-old female history of diabetes, hypertension, hyperlipidemia, end-stage renal disease on dialysis, questionable CAD and CHF, anxiety, possible Parkinson's disease who presented yesterday to the ED after completion of her dialysis for evaluation of lethargy and altered mental status. Patient admitted to taking Armstrong, Ativan and Benadryl prior to admission. Patient denied headache, visual changes, focal weakness or numbness. No chest pain, palpitations or shortness of breath. Denies abdominal pain, nausea or vomiting. No fevers or chills. Denied depression, hallucinations or suicidal intent. Per records patient was last treated at [facility] from May 27 - May 31, 2018 for fluid overload and facial swelling. PMH/Family/Social Past Medical History Medications Current Medications Ondansetron HCl (Zofran Inj) 4 mg ER BRIDGE PRN IV NAUSEA/VOMITING; Start 11/02/18 at 23:00; Stop 11/03/18 at 22:59 Acetaminophen (Tylenol Tab) 650 mg ER BRIDGE PRN PO .MILD PAIN 1-3 OR TEMP; Start 11/02/18 at 23:00; Stop 11/03/18 at 22:59 Zolpidem Tartrate (Ambien) 5 mg HS PRN PO INSOMNIA Last administered on 11/03/18at 02:52; Admin Dose 5 MG; Start 11/03/18 at 02:30 Diagnostic Test (Pha) (Accu-Chek) 1 ea 02 XX ; Start 11/04/18 at 02:00 Insulin Aspart (Novolog Insulin Pen) NOVOLOG *MILD* ALGORITHM WITH MEALS BEDTIME SC Last administered on 11/03/18at 03:24; Admin Dose 1 UNIT; Start 11/03/18 at 03:00 Miscellaneous Information 1 ea NOTE XX ; Start 11/03/18 at 03:00 Glucose (Glutose) 15 gm Q15M PRN PO DECREASED GLUCOSE; Start 11/03/18 at 03:00 Glucose (Glutose) 22.5 gm Q15M PRN PO DECREASED GLUCOSE; Start 11/03/18 at 03 :00 Dextrose (D50w Syringe) 25 ml Q15M PRN IV DECREASED GLUCOSE; Start 11/03/18 at 03:00 Dextrose (D50w Syringe) 50 ml Q15M PRN IV DECREASED GLUCOSE; Start 11/03/18 at 03:00 Glucagon (Glucagen) 1 mg Q15M PRN IM DECREASED GLUCOSE; Start 11/03/18 at 03:00 Glucose (Glutose) 15 gm Q15M PRN BUCCAL DECREASED GLUCOSE; Start 11/03/18 at 03:00 Ropinirole HCl (Requip) 1 mg TID PO Last administered on 11/03/18at 12:56; Admin Dose 1 MG; Start 11/03/18 at 03:00 Diclofenac Sodium (Voltaren 1% Gel) 1 gm Q6H PRN TP ITCHING; Start 11/03/18 at 06:00 Patient Own Medication 1 ea Q6H PRN TOP ITCHING; Start 11/03/18 at 09:00 Amlodipine Besylate (Norvasc) 5 mg BID PO Last administered on 11/03/18at 08:46; Admin Dose 5 MG; Start 11/03/18 at 09:00 Aspirin (Halfprin) 81 mg DAILY PO Last administered on 11/03/18 08:46; Admin Dose 81 MG; Start 11/03/18 at 09:00 Atorvastatin Calcium (Lipitor) 20 mg QHS PO ; Start 11/03/18 at 21:00 Clonidine (Catapres) 0.1 mg Q6 PRN PO PRN; Start 11/03/18 at 06:30 Furosemide (Lasix) 40 mg DAILY PO Last administered on 11/03/18at 08:45; Admin Dose 40 MG; Start 11/03/18 at 09:00 Insulin Glargine (Lantus) 12 units QHS SC ; Start 11/03/18 at 21:00 Albuterol/ Ipratropium (Duoneb) 3 ml Q2H RESP THERAPY PRN INH SHORTNESS OF BREATH Last administered on 11/03/18at 08:52; Admin Dose 3 ML; Start 11/03/18 at 06:30 Lorazepam (Ativan) 0.5 mg Q8 PRN PO ANXIETY; Start 11/03/18 at 06:30 Pantoprazole (Protonix Tab) 40 mg AC BREAKFAST PO Last administered on 11/03/18at 08:50; Admin Dose 40 MG; Start 11/03/18 at 07:25 Pregabalin (Lyrica) 75 mg BID PO Last administered on 3/15/19at 08:47; Admin Dose 75 MG; Start 11/03/18 at 09:00 Sevelamer Carbonate (Renvela) 1,600 mg WITH MEALS PO Last administered on 11/03/18at 12:57; Admin Dose 1,600 MG; Start 11/03/18 at 07:55 Zolpidem Tartrate (Ambien) 5 mg QHS PRN PO INSOMNIA; Start 11/03/18 at 06:30 Miscellaneous Information Patients own medicat... BID@10,16 XX ; Start 11/03/18 at 10:00 Coded Allergies: No Known Allergy (Unverified , 11/02/18) Past Surgical History Past Surgical Hx: other (Ankle surgery, , hemodialysis graft insertion) Family History Significant Family History: diabetes Social History Smoking Status: Never smoker Exam/Review of Systems Vital Signs Vitals Vital Signs Date Temp Pulse Resp B/P (MAP) Pulse Ox O2 O2 Flow FiO2 Time Delivery Rate 11/03/18 65 12:38 11/03/18 98.2 18 124/58 96 11:37 (80) 11/03/18 Nasal 3.0 10:04 Cannula 11/03/18 21 08:45 Exam Exam Gen: Lying in bed, no acute distress. Head: Atraumatic Eyes: Normal Conjunctiva ENT: Normal External Ears, Nose and Mouth. Neck: Full range of motion. No meningismus. Resp: Clear to auscultation bilaterally Cardio: Regular rate and rhythm, no murmurs Abd: Soft, non tender, non distended. Normal bowel sounds Ext: Left upper extremity: AV shunt with palpable thrill. Bilateral lower extremity: Trace edema. Neur: No focal deficits DARRYL RHODES Nov 03, 2018 15:12
[2018-11-03] MEDS ORDERED: SOD CHLORIDE 0.9% 250 ML IV* ONE (15:34)
--- NOTE | 2018-11-03 15:34 | DS ---
Date/Time of Note Date/Time of Note DATE: 11/03/18 TIME: 15:30 Discharge Summary Admission/Discharge Info Admit Date/Time Nov 02, 2018 at 22:43 Discharge Date/Time Discharge Diagnosis # AMS -likely secondary to outpatient [place], Ativan, Benadryl overuse. Patient more awake and alert now -Continue monitor for now, hold her home medicines until she becomes more alert which she is appearing to become now #: Diabetes: Follow-up A1c, continue insulin sliding scale #Hypertension: Stable, continue current medical #High cholesterol: Stable, continue statin #Anxiety: Again monitor for now # ESRD on HD -monitor for now, consider renal consult patient did receive dialysis yesterday # anemia -secondary to end-stage renal disease, status post PRBC transfusion times 1 unit #Parkinson's disease Patient Condition: Stable Hx of Present Illness 53-year-old female history of diabetes, hypertension, hyperlipidemia, end-stage renal disease on dialysis, questionable CAD and CHF, anxiety, possible Parkinson's disease who presented yesterday to the ED after completion of her dialysis for evaluation of lethargy and altered mental status. Patient admitted to taking [place], Ativan and Benadryl prior to admission. Patient denied headache, visual changes, focal weakness or numbness. No chest pain, palpitations or shortness of breath. Denies abdominal pain, nausea or vomiting. No fevers or chills. Denied depression, hallucinations or suicidal intent. Per records patient was last treated at [facility] from May 27 - May 31, 2018 for fluid overload and facial swelling. Hospital Course Patient was admitted, her home medicines including most of her antianxiety and pain medications were held as she was allowed to detoxify. She became an awake and alert relatively quickly. Vital signs remained stable. She was able to ambulate, tolerated p.o. diet. She was found with hemoglobin levels of 7.4 on the day of discharge, likely secondary to her end-stage renal disease chronic anemia. No signs of any upper or lower GI bleeding. We order for 1 unit PRBC transfusion today. After that is given, patient will go back to a fpc facility today in improved condition. Her medications have been adjusted and we are recommending holding a lot of her home medications which include antianxiety and pain control medications, again likely her altered mental status was secondary to polypharmacy. See printed medical reconciliation sheet for full list of discharge medications Home Meds Reported Medications Lidocaine HCl (Aspercreme) 76.5 Gm Cream..g., 76.5 GM TP 11/03/18 Hydrocortisone* Topical (Hydrocortisone* Topical) 0.5%- 28.35 Gm Oint, 1 APPLIC TOP BID, TUB 1% hydrocortisone cream 11/03/18 Melatonin-Pyridoxine Hcl (Melatonin) 1-10 Mg Tablet, 1 TAB PO HS, TAB 11/03/18 Hydroxyzine Hcl* (Hydroxyzine Hcl*) 25 Mg Tablet, 25 MG PO QID, #40 TAB 11/03/18 Pantoprazole* (Pantoprazole*) 40 Mg Tablet.dr, 40 MG PO AC BREAKFAST, TAB 11/02/18 Furosemide* (Furosemide*) 40 Mg Tablet, 40 MG PO NEEDED, TAB 11/02/18 Zolpidem Tartrate* (Zolpidem Tartrate*) 5 Mg Tablet, 5 MG PO QHS PRN for INSOMNIA, #30 TAB 11/02/18 Diclofenac Sodium* (Voltaren* Gel) 1% -100 Gm Gel, 1 GM TOP Q6H, #1 TUB 11/02/18 Ropinirole Hcl* (Ropinirole Hcl*) 1 Mg Tablet, 1 MG PO TID, TAB 11/02/18 Sevelamer Hcl* (Renagel*) 800 Mg Tablet, 1600 MG PO WITH MEALS, TAB 11/02/18 Multivit/Ca Carb/B Cmplx/Fa* (Kymberly-Marlon*) 1 Tab Tab, 1 TAB PO BID, TAB 11/02/18 Insulin Aspart (Novolog Mix (70/30)) 100 Units/Ml Soln, 2 UNITS SC WITH MEALS, EA 2 UNITS-QAM AND 2-3 UNITS-QPM 11/02/18 Hydrocodone/Acetaminophen ([place] 5-325 Tablet) 1 Each Tablet, 1 EACH PO Q6H PRN for DIRECTED, TAB 11/02/18 Pregabalin* (Lyrica*) 75 Mg Capsule, 75 MG PO BID, CAP 11/02/18 Lorazepam* (Lorazepam*) 0.5 Mg Tablet, 0.5 MG PO Q8 PRN for ANXIETY, TAB 11/02/18 Lidocaine (Lmx 4) 30 Gm Cream.gm., 1 TP TID 11/02/18 Insulin Glargine* (Lantus*) 100 Unit/Ml Soln, 12 UNIT SC QHS, #1 VIAL 11/02/18 Ipratropium-Albuterol (Ipratropium-Albuterol) 0.5-3 Mg/3 Ml Ampul.neb, 3 ML INHALATION Q2H, #30 VIAL 11/02/18 Hydralazine Hcl* (Hydralazine Hcl*) 50 Mg Tab, 50 MG PO Q8H PRN for PRN, #60 TAB 11/02/18 Duloxetine Hcl* (Cymbalta*) 30 Mg Capsule.dr, 30 MG PO DAILY, CAP 11/02/18 Cyclobenzaprine Hcl* (Cyclobenzaprine Hcl*) 10 Mg Tablet, 10 MG PO Q12H, #60 TAB 11/02/18 Clonidine Hcl* (Clonidine Hcl*) 0.1 Mg Tab, 0.1 MG PO Q6 PRN for PRN, TAB 11/02/18 Diphenhydramine Hcl* (Benadryl*) 25 Mg Cap, 25 MG PO Q6H PRN for ITCHING, CAP TAKE 1 OR 2 TAB 11/02/18 Atorvastatin Calcium* (Atorvastatin Calcium*) 20 Mg Tablet, 20 MG PO QHS, #30 TAB 11/02/18 Aspirin* (Aspirin* EC) 81 Mg Tablet.dr, 81 MG PO DAILY, TAB 11/02/18 Amlodipine Besylate* (Norvasc*) 5 Mg Tablet, 5 MG PO BID, TAB 11/02/18 Acetaminophen* (Acetaminophen*) 325 Mg Tablet, 650 MG PO Q6H PRN for PAIN AND OR ELEVATED TEMP, #30 TAB 11/02/18 Discontinued Reported Medications [Lidocaine Cream 4%] No Conflict Check, 1 APPLIC TP DAILY APPLY TO CHEST WALL TOPICALLY 05/24/18 Hydralazine Hcl* (Hydralazine Hcl*) 50 Mg Tab, 50 MG PO Q8, #90 TAB HOLD IF SBP<110 OR HR<60 05/24/18 Haloperidol Lactate (Haloperidol Lactate) 5 Mg/1 Ml Vial, 2 MG IM* Q6H, VIAL 05/24/18 Diphenhydramine Hcl* (Benadryl*) 25 Mg Cap, 25 MG PO Q6H PRN for ITCHING, CAP 05/24/18 Amlodipine Besylate* (Norvasc*) 5 Mg Tablet, 5 MG PO DAILY, TAB HOLD IF SBP<110 OR HR<60 05/24/18 Lorazepam* (Lorazepam*) 0.5 Mg Tablet, 0.5 MG PO Q8 PRN for ANXIETY, TAB 05/24/18 Hydrocodone/Acetaminophen ([place] 5-325 Tablet) 1 Each Tablet, 1 EACH Q6H PRN for PAIN LEVEL 8-05/31, TAB TAKE VIA DH-TUBE 05/24/18 Pantoprazole* (Pantoprazole*) 40 Mg Tablet.dr, 40 MG PO AC BREAKFAST, TAB 05/24/18 Diclofenac Sodium* (Voltaren* Gel) 1% -100 Gm Gel, 2 GM TOP Q6H, #1 TUB 05/24/18 Ropinirole Hcl* (Ropinirole Hcl*) 1 Mg Tablet, 1 MG PO NEEDED, TAB 02/15/18 Sevelamer Carbonate* (Renvela*) 800 Mg Tablet, 2.4 GM PO WITH MEALS, TAB 02/15/18 Pregabalin* (Lyrica*) 75 Mg Capsule, 75 MG PO BID, CAP 02/15/18 Insulin Aspart* (Novolog Insulin Pen*) 100 Unit/Ml Soln, 0 SC .SLIDING SCALE AC, EA IF BS 70-150=0 UNIT, 151-200=2 UNITS, 201-250=4 UNITS, 251-300=6 UNITS, 301-350=8 UNITS, 351-400=10 UNITS IF BS>400 GIVE 12 UNITS THEN CALL MD 02/15/18 Ipratropium-Albuterol (Ipratropium-Albuterol) 0.5-3 Mg/3 Ml Ampul.neb, 3 ML INHALATION Q6 PRN for WHEEZING AND SOB, #30 VIAL 02/15/18 Atorvastatin Calcium* (Atorvastatin Calcium*) 20 Mg Tablet, 20 MG PO QHS, #30 TAB 02/15/18 Zolpidem Tartrate* (Zolpidem Tartrate*) 5 Mg Tablet, 5 MG PO QHS PRN for INSOMNIA, #30 TAB 02/15/18 Acetaminophen* (Acetaminophen*) 325 Mg Tablet, 650 MG PO Q6H PRN for MILD PAIN LEVEL 1-3, #30 TAB AND FOR FEVER T>101F 09/26/17 Insulin Glargine* (Lantus*) 100 Unit/Ml Soln, 8 UNIT SC QHS, #1 VIAL 09/26/17 Clonidine Hcl* (Clonidine Hcl*) 0.1 Mg Tab, 0.1 MG PO Q6 PRN for HTN, TAB IF SBP>160 09/26/17 Aspirin* (Aspirin* Chew) 81 Mg Tab.chew, 81 MG PO DAILY, TAB.CHEW 09/26/17 Primary Care Provider Trung Durán MD Time spent on discharge: > 30 minutes Pending Labs Laboratory Tests Test 11/02/18 19:48 11/02/18 19:51 11/02/18 19:55 11/03/18 03:21 Bedside 96 215 Glucose mg/dL (70-220) mg/dL (70-220) Blood Gas Blood arterial Specimen Source Arterial Blood 11/02/2018 8:00 Date Drawn :42 PM Arterial Blood 7.441 (7.350-7 pH .450) (Temp corrected ) Arterial Blood 45.3 pCO2 mmhg (35-45) (Temp correct) Arterial Blood 54.3 pO2 mmHG (80-100.0 (Temp corrected ) ) Arterial Blood 30.1 HCO3 mmol/L (22.0-2 6.0) Arterial Blood 5.4 Base Excess mmol/L (-3.0-3 ) Arterial Blood 84.8 Oxygen Saturati mmHG (95.0-98. on 0) Harman Test N/A Arterial Blood Right HEEL Gas Puncture Site Arterial 0.5 Blood Carboxyhe % (0.0-3.0) moglobin Arterial Blood 0.2 Methemoglobin % (0.0-1.5) Blood Gas A-a 128.1 O2 mmHg (7.0-24.0 Differential ) Oxyhemoglobin 84.2 Percent % (93.0-99.0) Blood Gas 37.0 C Temperature Blood Gas NASAL CANNULA Modality FiO2 33.0 % Blood Gas Amalia CARTWRIGHT MD Critical Value Read Back Blood Gas MIRANDA Notified Whom Blood Gas 11/02/2018 8:12 Notified Time :49 PM White Blood 6.4 Count 10^3/ul (4.8-1 0.8) Red Blood 2.89 Count 10^6/ul (4.20- 5.40) Hemoglobin 8.1 g/dl (12.0-16. 0) Hematocrit 26.3 % (37.0-47.0) Mean 91.0 Corpuscular fl (82.0-101.0 Volume ) Mean 28.0 Corpuscular pg (29.0-33.0) Hemoglobin Mean 30.8 Corpuscular g/dl (32.0-37. Hemoglobin Conc 0) ent Red Cell 16.8 Distribution % (11.5-14.5) Width Platelet Count 194 10^3/UL (140-4 15) Mean Platelet 9.5 Volume fl (7.4-10.4) Immature 1.400 Granulocytes % % (0.001-0.429 ) Neutrophils % 72.0 % (39.0-77.0) Lymphocytes % 11.1 % (15.0-51.0) Monocytes % 13.9 % (0.0-11.0) Eosinophils % 0.8 % (0.0-7.0) Basophils % 0.8 % (0.0-2.0) Nucleated Red 1.2 Blood Cells % /100WBC (0.0-0 .0) Immature 0.090 Granulocytes # 10^3/ul (0.0-0 .031) Neutrophils # 4.6 10^3/ul (1.6-7 .5) Lymphocytes # 0.7 10^3/ul (0.8-2 .9) Monocytes # 0.9 10^3/ul (0.3-0 .9) Eosinophils # 0.1 10^3/ul (0.0-0 .5) Basophils # 0.1 10^3/ul (0.0-0 .1) Nucleated Red 0.1 Blood Cells # 10^3/ul (0.0-0 .0) Sodium Level 140 mmol/L (135-14 4) Potassium 4.1 Level mmol/L (3.5-5. 1) Chloride Level 97 mmol/L (97-110 ) Carbon Dioxide 30 Level mmol/L (21-31) Anion Gap 13 (5-13) Blood Urea 30 Nitrogen mg/dl (7-20) Creatinine 3.24 mg/dl (0.44-1. 00) Est Glomerular 15 Filtrat mL/min (>60) Rate mL/min Glucose Level 97 mg/dl (70-220) Calcium Level 8.9 mg/dl (8.4-10. 2) Total 0.2 Bilirubin mg/dl (0.2-1.3 ) Direct 0.00 Bilirubin mg/dl (0.00-0. 20) Indirect 0.2 Bilirubin mg/dl (0-1.1) Aspartate Amino 36 Transf (AST/SGO IU/L (15-46) T) Alanine 35 Aminotransferas IU/L (13-69) e (ALT/SGPT) Alkaline 357 Phosphatase IU/L (42-121) Total Protein 7.4 g/dl (6.1-8.1) Albumin 4.1 g/dl (3.3-4.9) Globulin 3.30 g/dl (1.3-3.2) Albumin/Globuli 1.24 n Ratio Salicylates < 1.0 Level mg/dl (5.0-30. 0) Acetaminophen < 10.0 Level ug/ml (10.0-30 .0) Ethyl Alcohol < 10.0 Level mg/dl (0-0) Test 11/03/18 06:50 11/03/18 08:20 11/03/18 12:43 White Blood 8.2 Count 10^3/ul (4.8-10 .8) Red Blood 2.59 Count 10^6/ul (4.20-5 .40) Hemoglobin 7.4 g/dl (12.0-16.0 ) Hematocrit 24.3 % (37.0-47.0) Mean 93.8 Corpuscular fl (82.0-101.0) Volume Mean 28.6 Corpuscular pg (29.0-33.0) Hemoglobin Mean 30.5 Corpuscular g/dl (32.0-37.0 Hemoglobin Conc ) ent Red Cell 17.1 Distribution % (11.5-14.5) Width Platelet Count 118 10^3/UL (140-41 5) Mean Platelet 11.3 Volume fl (7.4-10.4) Immature 2.100 Granulocytes % % (0.001-0.429) Neutrophils % 73.3 % (39.0-77.0) Lymphocytes % 9.6 % (15.0-51.0) Monocytes % 13.4 % (0.0-11.0) Eosinophils % 0.9 % (0.0-7.0) Basophils % 0.7 % (0.0-2.0) Nucleated Red 3.5 Blood Cells % /100WBC (0.0-0. 0) Immature 0.170 Granulocytes # 10^3/ul (0.0-0. 031) Neutrophils # 6.0 10^3/ul (1.6-7. 5) Lymphocytes # 0.8 10^3/ul (0.8-2. 9) Monocytes # 1.1 10^3/ul (0.3-0. 9) Eosinophils # 0.1 10^3/ul (0.0-0. 5) Basophils # 0.1 10^3/ul (0.0-0. 1) Nucleated Red 0.3 Blood Cells # 10^3/ul (0.0-0. 0) Sodium Level 140 mmol/L (135-144 ) Potassium 5.0 Level mmol/L (3.5-5.1 ) Chloride Level 98 mmol/L (97-110) Carbon Dioxide 25 Level mmol/L (21-31) Anion Gap 17 (5-13) Blood Urea 42 mg/dl (7-20) Nitrogen Creatinine 4.23 mg/dl (0.44-1.0 0) Est Glomerular 11 mL/min (>60) Filtrat Rate mL/min Glucose Level 167 mg/dl (70-220) Calcium Level 8.2 mg/dl (8.4-10.2 ) Bedside 135 128 Glucose mg/dL (70-220) mg/dL (70-220) DARRYL RHODES Nov 03, 2018 15:34
--- NOTE | 2018-11-03 16:32 | CONS ---
DATE OF ADMISSION: 11/02/2018 DATE OF CONSULTATION: 11/03/2018 TYPE OF CONSULTATION: Nephrology. REASON FOR CONSULTATION: End-stage renal disease. PHYSICIAN REQUESTING CONSULT: Stuart Huffman MD HISTORY OF PRESENT ILLNESS: This is a 53-year-old female with a past medical history of end-stage re nal disease on dialysis Tuesday, , Tuesday. Last hemodialysis was . History of ane kita, history of hypertension, history of encephalopathy, history of CHF, anxiety disorder, who presen ts to [facility] due to altered mental status. The patient was at her skilled nurs ing facility and apparently was noted to be somnolent. As a result, she was brought into the emergen cy room. Upon arrival, the patient had a CT scan of the brain which showed no acute finding. The cindy san was subsequently admitted to telemetry for evaluation. Upon my evaluation of the patient at this time, she has been stable. Denies any fevers, chills, naus ea or vomiting. PAST MEDICAL HISTORY: History of end-stage renal disease, history of diabetes, hypertension, dyslipi demia, anxiety disorder, history of CHF. FAMILY HISTORY: No family history of kidney disease. SOCIAL HISTORY: Does not drink, smoke or do any drugs. PAST SURGICAL HISTORY: Status post AV fistula placement, status post resection, status post sinus disla rgery. MEDICATIONS: Have been reviewed. ALLERGIES: NO KNOWN DRUG ALLERGIES. REVIEW OF SYSTEMS: A 14-point review of systems was conducted. Pertinent positives stated in HPI, o therwise negative. PHYSICAL EXAMINATION: VITAL SIGNS: Blood pressure 124/58, respiration 18, pulse 69, temperature 98.2. HEENT: Head is normocephalic. NECK: Supple. HEART: Regular rate. LUNGS: Show diminished breath sounds at base. ABDOMEN: Soft, nontender to palpation without rebound or guarding. EXTREMITIES: Negative for clubbing or cyanosis. No edema. DERMATOLOGIC: No rashes. MUSCULOSKELETAL: No joint effusions. NEUROLOGIC: No focal deficits. LABORATORY DATA: Have been reviewed. ASSESSMENT AND PLAN: A 53-year-old female who presents with: 1. End-stage renal disease. The patient is on hemodialysis Tuesday, and Tuesday. Last was yesterday. Plan is for dialysis tomorrow. We will dialyze for 3-1/2 hours on 2k bath, c alcium 2.5, ultrafiltrate as tolerated. 2. Volume overload. 3. End-stage renal disease. Continue ultrafiltration dialysis. 4. Altered mental status. Etiology is likely medication related. Continue current medical manageme nt. We would recommend to deescalate opiate. 5. Anemia. Monitor hemoglobin and hematocrit levels. We will give Epogen as needed. 6. Metabolic syndrome. We will monitor calcium and phosphorus levels. 7. Diabetes. Continue current diabetic regimen. 8. Anxiety disorder. Continue to monitor. 9. Dyslipidemia. Continue statin therapy. 10. Hypertension. Continue current blood pressure regimen. Thank you, , for this interesting consult. It will be a pleasure to follow patient with you throughout the hospital course. Dictated By: AMMY BERNAL DO NR/NTS Conf#: [id number] DID#: [id number] CC: EDWIN LINN MD; DARRYL RHODES;*EndCC*
[2018-11-03] MEDS ORDERED: INSULIN GLARGINE [LANTus] (100 UNITS/ML) SYG SC SCH (21:00)
[2018-11-03] MEDS ORDERED: ATORVASTATIN 20 MG TAB PO SCH (21:00)
[2018-11-04] MEDS ORDERED: ACCU-CHEK XX SCH (02:00)
== END 2018-11-03 21:07 ==
LOC: E/R 19:27 → TEL 22:43 → CANRESERV 11-03 00:14 → TEL 11-03 10:49 → UNDODISOB 11-03 14:48
PROVIDERS: ADMIT Internal Medicine; ATTEND Hospitalist
DX: R41.82 Altered mental status, unspecified (principal); I12.0 Hypertensive chronic kidney disease with stage 5 chronic kidney disease or end stage renal disease; E11.22 Type 2 diabetes mellitus with diabetic chronic kidney disease; N18.6 End stage renal disease; Z99.2 Dependence on renal dialysis; I25.10 Atherosclerotic heart disease of native coronary artery without angina pectoris; I11.0 Hypertensive heart disease with heart failure; I50.9 Heart failure, unspecified; F32.9 Major depressive disorder, single episode, unspecified; D63.1 Anemia in chronic kidney disease; E78.00 Pure hypercholesterolemia, unspecified; F41.9 Anxiety disorder, unspecified; G20 Parkinson's disease; Z79.4 Long term (current) use of insulin; Z79.82 Long term (current) use of aspirin; Z86.73 Personal history of transient ischemic attack (TIA), and cerebral infarction without residual deficits
CPT/HCPCS: 36415; 36600; 70450; 71045; 80048; 80053; 80307; 82803; 82962; 85014; 85018; 85025; 86850; 86900; 86901; 86920; 87081; 87340; 93005; 94640; 94664; 96374; 99285; G0378; J1815; J2310; J7040

== ENCOUNTER 2019-02-06 15:13 | Inpatient (IN) | payer MEDICARE, OTHER ==
[~2019-02-06] VITALS: Ht 157.5 cm; Wt 65.3 kg
[~2019-02-06 15:13] MED LIST changes: +ASPI-817 PO; -ASPI-903 PO; +CYCL10TA7 PO; +DULO30CA45 PO; +FURO40TA4 PO; -HALO5VIA16 IM*; +HC.5O30 TOP; -HYDR-4011; +HYDR-4011 PO; +HYDR-843 PO; +LIDO30CR2 TP; +LIDO76.5 TP; -LIDOCAINE CREAM 4% TP; +MELA1TAB9 PO; +NEPH PO; +NOVMIX SC; -NOVO3I SC; -SEVE800T7 PO; +SVL800C PO
[2019-02-06] MEDS ORDERED: NALOXONE (0.4 MG/ML) INJ ONE (15:39)
[2019-02-06] MEDS ORDERED: NALOXONE (0.4 MG/ML) INJ IV ONE (16:00)
[2019-02-06] MEDS ORDERED: ALBUTEROL 0.5% (NEB) 2.5 MG/0.5 ML AMP INH STA (17:25)
[2019-02-06] MEDS ORDERED: INSULIN REGULAR, HUMAN 100 UNIT/1 ML 3ML VIAL IVP STA (17:25)
[2019-02-06] MEDS ORDERED: DEXTROSE 50% 50 ML SYRINGE IV ONE (17:30)
[2019-02-06] MEDS ORDERED: DEXTROSE 50% 50 ML SYRINGE IV PRN (17:30)
[2019-02-06] MEDS ORDERED: ACETAMINOPHEN 325 MG TAB PO PRN (18:00)
[2019-02-06] MEDS ORDERED: ONDANSETRON 4 MG INJ IV PRN ×2 (18:00→19:30)
--- NOTE | 2019-02-06 18:37 | ERD ---
ER Documentation Chief Complaint Chief Complaint ALTERED HPI 53-year-old female brought in by ambulance from her dialysis clinic where she was dropped off by transportation, presenting with altered mental status. Per EMS report, the patient is chronically on [place]. Dialysis was not performed and ambulance was called immediately. Otherwise history is limited as the patient is unresponsive. ROS Unable to obtain due to altered mental status Medications Home Meds Reported Medications Acetaminophen* (Acetaminophen*) 325 Mg Tablet, 650 MG PO Q6H PRN for PAIN AND OR ELEVATED TEMP, #30 TAB 02/06/19 Amlodipine Besylate* (Norvasc*) 5 Mg Tablet, 5 MG PO BID, TAB 02/06/19 Aspirin* (Aspirin* EC) 81 Mg Tablet.dr, 81 MG PO DAILY, TAB 02/06/19 Atorvastatin Calcium* (Atorvastatin Calcium*) 20 Mg Tablet, 20 MG PO QHS, #30 TAB 02/06/19 Diphenhydramine Hcl* (Benadryl*) 25 Mg Cap, 25 MG PO Q6H PRN for ITCHING, CAP 02/06/19 Clonidine Hcl* (Clonidine Hcl*) 0.1 Mg Tab, 0.1 MG PO Q6 PRN for HTN, TAB 02/06/19 Cyclobenzaprine Hcl* (Cyclobenzaprine Hcl*) 10 Mg Tablet, 10 MG PO Q12H, #60 TAB 02/06/19 Duloxetine Hcl* (Duloxetine Hcl*) 30 Mg Capsule.dr, 30 MG PO DAILY, #30 CAP 02/06/19 Ipratropium-Albuterol (Ipratropium-Albuterol) 0.5-3 Mg/3 Ml Ampul.neb, 3 ML INHALATION Q2H, #30 VIAL 02/06/19 Hydralazine Hcl* (Hydralazine Hcl*) 50 Mg Tab, 50 MG PO Q8, #90 TAB 02/06/19 Insulin Aspart (Novolog Mix (70/30)) 100 Units/Ml Soln, 2 UNIT SC WITH MEALS, EA 02/06/19 Insulin Glargine* (Lantus*) 100 Unit/Ml Soln, 12 UNIT SC QHS, #1 VIAL 02/06/19 Lidocaine 4% Topical (Lidocaine HCl) 4%-50 Ml Soln, 1 APPLIC TOPICAL TID, BOT 02/06/19 Lorazepam* (Lorazepam*) 0.5 Mg Tablet, 0.5 MG PO Q8 PRN for ANXIETY, TAB 02/06/19 Pregabalin* (Lyrica*) 75 Mg Capsule, 75 MG PO BID, CAP 02/06/19 Hydrocodone/Acetaminophen ([place] 5-325 Tablet) 1 Each Tablet, 1 EACH PO Q6H, TAB 02/06/19 Pantoprazole* (Pantoprazole*) 40 Mg Tablet.dr, 40 MG PO AC BREAKFAST, TAB 02/06/19 Ropinirole Hcl* (Ropinirole Hcl*) 1 Mg Tablet, 1 MG PO TID, TAB 02/06/19 Diclofenac Sodium* (Voltaren* Gel) 1% -100 Gm Gel, 2 GM TOP QID, #1 TUB 02/06/19 Zolpidem Tartrate* (Zolpidem Tartrate*) 5 Mg Tablet, 5 MG PO QHS PRN for INSOMNIA, #30 TAB 02/06/19 Furosemide* (Furosemide*) 40 Mg Tablet, 40 MG PO DAILY, TAB 02/06/19 Sevelamer Carbonate* (Renvela*) 800 Mg Tablet, 4800 GM PO WITH MEALS, TAB 02/06/19 Allergies Allergies: Coded Allergies: No Known Allergy (Unverified , 02/06/19) PMhx/Soc Medical and Surgical Hx: Unable to obtain Hx Miscellaneous Medical Probl: Yes (ESRD on hemodialysis) FmHx Unable to obtain Physical Exam Vitals Vital Signs Date Temp Pulse Resp B/P (MAP) Pulse Ox O2 O2 Flow FiO2 Time Delivery Rate 02/06/19 3.0 18:13 02/06/19 73 19 95 Nasal 3.0 18:13 Cannula 02/06/19 Nasal 6 16:09 Cannula 02/06/19 97.2 65 14 140/58 96 15:23 (85) Physical Exam INITIAL VITAL SIGNS: Reviewed by me GENERAL: Patient is lying on gurney, chronically ill-appearing, unresponsive HEAD: Normocephalic EYES: Pupils midsize, equal, sluggish. Bilateral upper lid swelling with bruising of the left lid. No icterus. No pallor. ENT: Mucous membranes dry, no erythema or tonsillar exudates. Airway patent. NECK: Supple. No masses. Full range of motion. No meningismus. No lymphadenopathy RESPIRATORY: Diminished breath sounds bilaterally. No wheezing, No rales, No rhonchi. Subcostal retractions noted CV: Regular rate and rhythm. No murmurs, No rubs or gallops. ABDOMEN: Soft, distended, non-tender. No guarding. No rebound. No pulsatile mass. Bowel sounds normal. EXTREMITIES: No edema. No clubbing or cyanosis. Pulses symmetric. No deficits or delays. Calves non-tender. No cords. SKIN: Warm and dry. Decreased turgor. No obvious rash, petechiae or purpura. NEUROLOGIC: Somnolent, not arousable with painful stimuli but spontaneously moving all extremities equally. Not following commands. No verbal response Result Diagram: 02/06/19 1601 02/06/19 1601 Results 24 hrs Laboratory Tests Test 02/06/19 15:55 02/06/19 16:01 02/06/19 16:13 02/06/19 18:05 Bedside Glucose 182 mg/dL 158 mg/dL White Blood Count 12.5 10^3/ul Red Blood Count 3.69 10^6/ul Hemoglobin 10.1 g/dl Hematocrit 31.6 % Mean Corpuscular 85.6 fl Volume Mean Corpuscular 27.4 pg Hemoglobin Mean Corpuscular 32.0 g/dl Hemoglobin Concent Red Cell 17.6 % Distribution Width Platelet Count 152 10^3/UL Mean Platelet 10.1 fl Volume Immature 0.700 % Granulocytes % Neutrophils % 75.7 % Lymphocytes % 12.0 % Monocytes % 9.5 % Eosinophils % 1.3 % Basophils % 0.8 % Nucleated Red Blood 0.0 /100WBC Cells % Immature 0.090 10^3/ul Granulocytes # Neutrophils # 9.5 10^3/ul Lymphocytes # 1.5 10^3/ul Monocytes # 1.2 10^3/ul Eosinophils # 0.2 10^3/ul Basophils # 0.1 10^3/ul Nucleated Red Blood 0.0 10^3/ul Cells # Prothrombin Time 13.5 Sec Prothrombin Time 1.1 Ratio INR International 1.02 Normalized Ratio Activated 44.8 Sec Partial Thromboplas t Time Sodium Level 139 mmol/L Potassium Level 6.6 mmol/L Chloride Level 95 mmol/L Carbon Dioxide 20 mmol/L Level Anion Gap 24 Blood Urea Nitrogen 111 mg/dl Creatinine 9.68 mg/dl Est Glomerular 4 mL/min Filtrat Rate mL/min Glucose Level 166 mg/dl Calcium Level 8.6 mg/dl Total Bilirubin 0.1 mg/dl Direct Bilirubin 0.00 mg/dl Indirect Bilirubin 0.1 mg/dl Aspartate Amino 35 IU/L Transf (AST/SGOT) Alanine 33 IU/L Aminotransferase (A LT/SGPT) Alkaline 369 IU/L Phosphatase Ammonia 16 umol/l Troponin I 0.013 ng/ml Total Protein 8.7 g/dl Albumin 4.7 g/dl Globulin 4.00 g/dl Albumin/Globulin 1.17 Ratio Free Thyroxine 1.93 ug/ml Index Thyroxine (T4) 5.2 ug/dl Triiodothyronine 37.2 % (T3) Uptake Salicylates Level < 1.0 mg/dl Acetaminophen Level 12.0 ug/ml Ethyl Alcohol Level < 10.0 mg/dl POC Venous Lactate 1.7 mmol/L Current Medications Medications Dose Sig/Hayley Start Time Status Last (Trade) Ordered Route PRN Stop Time Admin Dose Reason Admin Naloxone 0.4 mg ONCE ONCE 02/06/19 DC 02/06/19 HCl IV 16:00 15:50 (Narcan) 02/06/19 16:01 Albuterol 15 mg ONCE STAT 02/06/19 DC 02/06/19 (Proventil INH 17:25 18:11 0.5% (Neb)) 02/06/19 17:26 Insulin 10 unit ONCE STAT 02/06/19 DC 02/06/19 Human IVP 17:25 18:05 Regular 02/06/19 17:26 (Humulin R) Dextrose ONCE PRN 02/06/19 (D50w IV DECREASED 17:30 Syringe) GLUCOSE Dextrose 50 ml ONCE ONCE 02/06/19 DC 02/06/19 (D50w IV 17:30 18:06 Syringe) 02/06/19 17:31 Ondansetron 4 mg ER BRIDGE 02/06/19 HCl (Zofran PRN IV 18:00 Inj) NAUSEA/VOMITI 02/07/19 17:59 NG 650 mg ER BRIDGE 02/06/19 Acetaminophen PRN PO 18:00 (Tylenol .MILD PAIN 02/07/19 17:59 Tab) 1-3 OR TEMP Procedures/MDM EMERGENT LABS AND DIAGNOSTIC STUDIES: Lab Results above were reviewed and interpreted by me. CBC: Leukocytosis, unknown etiology. Mild anemia, likely secondary to chronic disease CMP: Elevated BUN and creatinine, consistent with chronic kidney disease with uremia. Hyperkalemic. Ammonia level within normal limits Troponin within normal limits, not indicative of cardiac ischemia Lactate within normal limits without evidence of sepsis or tissue hypoperfusion EtOH negative 12-lead EKG was interpreted by Karl Abarca MD: Normal Sinus Rhythm with ventricular rate of 67 beats per minute Right axis Normal intervals No acute ST or T wave changes suggestive of acute ischemia or STEMI. Radiology Results as interpreted by Radiology below were reviewed by Rosario Abarca MD: Chest x-ray shows cardiomegaly, no other acute abnormalities CT head: IMPRESSION: 1. Moderate diffuse atrophy. 2. Mild microangiopathic ischemic change. 3. Vascular calcifications. 4. 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 5. No definite acute intracranial process. Initial Nursing notes reviewed. Previous Medical Records requested via the Electronic Health Record. EMERGENCY DEPARTMENT COURSE / MEDICAL DECISION MAKING: Patient is presenting with altered mental status. Vitals were notable for hypertension. Sirs criteria not met, so low suspicion for acute infection. Given her history of narcotic use, small dose of Narcan was given with improvement in her mental status, however she still was confused, just more alert. CT head did not show any acute abnormalities. She did have multiple lab abnormalities including uremia, which may be contributing to her alteration in mental status. She was also noted to be hyperkalemic, for which she was treated with IV insulin and dextrose as well as albuterol. Kayexalate not given given due to her mental status. Patient will require dialysis. At this time she is not stable for discharge. She will be admitted to telemetry Accepting Care Team: Current data and ongoing care discussed. Time: Time of admission Primary Provider: Dr. Flako Noland Diagnosis: Primary Impression: Acute encephalopathy Additional Impressions: Leukocytosis Leukocytosis type: unspecified Qualified Codes: D72.829 - Elevated white blood cell count, unspecified ESRD on hemodialysis Hyperkalemia Uremia Narcotic overdose Encounter type: initial encounter Injury intent: undetermined intent Qualified Codes: T40.604A - Poisoning by unspecified narcotics, undetermined, initial encounter Condition: Serious RIANNA ABARCA MD Feb 06, 2019 18:37
--- NOTE | 2019-02-06 19:16 | HP ---
Date/Time of Note Date/Time of Note DATE: 02/06/19 TIME: 19:12 Assessment/Plan VTE Prophylaxis SCD applied (from Nsg): Yes Pharmacological prophylaxis: NA/contraindicated Pharm contraindication: renal impairment Lines/Catheters IV Catheter Type (from Nrsg): Saline Lock Assessment/Plan Hospital Course 1. Acute metabolic/toxic encephalopathy Patient is on chronic [place], mentation did not improve with Narcan Follow-up on toxicology screen Etiology may also be secondary to electrolyte disturbance from renal failure Broad-spectrum antibiotics for possible sepsis Ammonia level is normal 2. Sepsis Follow-up on cultures Broad-spectrum antibiotics 3. End-stage renal disease Nephrology consultation with Dr. Francisco grande 4. Normocytic anemia like secondary to end-stage renal disease Monitor Prophylaxis: SCDs Result Diagram: 02/06/19 1601 02/06/19 1601 Results 24hrs Laboratory Tests Test 02/06/19 15:55 02/06/19 16:01 02/06/19 16:13 02/06/19 18:05 Bedside Glucose 182 158 White Blood Count 12.5 H Red Blood Count 3.69 L Hemoglobin 10.1 L Hematocrit 31.6 L Mean Corpuscular 85.6 Volume Mean Corpuscular 27.4 L Hemoglobin Mean Corpuscular 32.0 Hemoglobin Concent Red Cell 17.6 H Distribution Width Platelet Count 152 Mean Platelet Volume 10.1 Immature 0.700 H Granulocytes % Neutrophils % 75.7 Lymphocytes % 12.0 L Monocytes % 9.5 Eosinophils % 1.3 Basophils % 0.8 Nucleated Red Blood 0.0 Cells % Immature 0.090 H Granulocytes # Neutrophils # 9.5 H Lymphocytes # 1.5 Monocytes # 1.2 H Eosinophils # 0.2 Basophils # 0.1 Nucleated Red Blood 0.0 Cells # Prothrombin Time 13.5 Prothrombin Time 1.1 Ratio INR International 1.02 Normalized Ratio Activated 44.8 H Partial Thromboplast Time Sodium Level 139 Potassium Level 6.6 *H Chloride Level 95 L Carbon Dioxide Level 20 L Anion Gap 24 H Blood Urea Nitrogen 111 H Creatinine 9.68 H Est Glomerular 4 L Filtrat Rate mL/min Glucose Level 166 Calcium Level 8.6 Total Bilirubin 0.1 L Direct Bilirubin 0.00 Indirect Bilirubin 0.1 Aspartate Amino 35 Transf (AST/SGOT) Alanine 33 Aminotransferase (AL T/SGPT) Alkaline Phosphatase 369 H Ammonia 16 Troponin I 0.013 Total Protein 8.7 H Albumin 4.7 Globulin 4.00 H Albumin/Globulin 1.17 Ratio Free Thyroxine Index 1.93 Thyroxine (T4) 5.2 L Triiodothyronine 37.2 (T3) Uptake Salicylates Level < 1.0 L Acetaminophen Level 12.0 Ethyl Alcohol Level < 10.0 H POC Venous Lactate 1.7 Test 02/06/19 18:26 Bedside Glucose 185 HPI/ROS Admit Date/Time Admit Date/Time February 06, 2019 Hx of Present Illness Patient is a 53-year-old female brought in by ambulance from her dialysis clinic where she was reportedly altered. Per paramedics report patient was confused at dialysis center and dialysis was not performed and ambulance was called immediately. Of note patient is reportedly chronically on [place]. Patient is unresponsive and history is limited at this time. ROS Subjective hx not possible: pt non-verbal PMH/Family/Social Past Medical History As per HPI Medications Current Medications Dextrose (D50w Syringe) ONCE PRN IV DECREASED GLUCOSE; Start 02/06/19 at 17:30 Ondansetron HCl (Zofran Inj) 4 mg ER BRIDGE PRN IV NAUSEA/VOMITING; Start 02/06/19 at 18:00; Stop 02/07/19 at 17:59 Acetaminophen (Tylenol Tab) 650 mg ER BRIDGE PRN PO .MILD PAIN 1-3 OR TEMP; Start 02/06/19 at 18:00; Stop 02/07/19 at 17:59 Coded Allergies: No Known Allergy (Unverified , 02/06/19) Family History Significant Family History: no pertinent family hx Exam/Review of Systems Vital Signs Vitals Vital Signs Date Temp Pulse Resp B/P (MAP) Pulse Ox O2 O2 Flow FiO2 Time Delivery Rate 02/06/19 3.0 18:13 02/06/19 73 19 95 Nasal 18:13 Cannula 02/06/19 97.2 140/58 15:23 (85) Exam Psych: confusion Respiratory: clear to auscultation Cardiovascular: regular rate and rhythm Gastrointestinal: soft; No distended Musculoskeletal: nl extremities to inspection ASHER ANSARI Feb 06, 2019 19:16
[2019-02-06] MEDS ORDERED: VANCOMYCIN IV PER PHARMACY XX SCH (19:30)
[2019-02-06] MEDS ORDERED: DOCUSATE SODIUM 100 MG CAP PO PRN (19:30)
[2019-02-06] MEDS ORDERED: NACL 0.9% 3 ML SYG IV SCH (19:30)
[2019-02-06 21:10] VITALS: BP 147/67; PULSE 72; RESP 20; Ht 157.5 cm; Wt 65.3 kg
[2019-02-06 21:12] VITALS: PULSE 73
[2019-02-06] MEDS ORDERED: VANCOMYCIN HCL 1.25 GM in SOD CHLORIDE 0.9% 250 ML IVPB SCH (22:30)
--- NOTE | 2019-02-06 22:59 | QN ---
Documentation Comment Patient admitted for acute encephalopathy and was unable to undergo dialysis at the dialysis center. Orders have been placed for urgent dialysis. Patient is still encephalopathic and not able to give consent. There are no family members present to be able to give consent. Given the emergent medical necessity we will proceed with dialysis. MATTHIAS ALICIA Feb 06, 2019 22:59
[2019-02-06] MEDS: PIPER-TAZO 2.25 GM (PMX) 50 ML IVPB SCH (23:33)
[2019-02-06 23:51] VITALS: BP 146/65; PULSE 70; RESP 20
[2019-02-07] VITALS (21 sets, daily range): BP systolic 132–160; BP diastolic 53–97; PULSE 67–78; RESP 19–20
[2019-02-07] MEDS ORDERED: LIDOCAINE 1% (MDV) 20 ML INJ SC ONE (01:30)
[2019-02-07] MEDS ORDERED: LIDOCAINE 1% (MDV) 10 ML INJ INJ ONE (02:00)
[2019-02-07] MEDS ORDERED: morphine 2 MG INJ IV PRN (03:30)
[2019-02-07] MEDS ORDERED: traMADol 50 MG TAB PO PRN (03:30)
[2019-02-07] MEDS ORDERED: SOD CHLORIDE 0.9% 1,000 ML IV SCH (04:00)
[2019-02-07] MEDS ORDERED: DEXTROSE 50% 50 ML SYRINGE IV PRN ×2 (04:30)
[2019-02-07] MEDS ORDERED: GLUCOSE GEL 15 GRAM TUBE PO PRN ×2 (04:30)
[2019-02-07] MEDS ORDERED: GLUCOSE GEL 15 GRAM TUBE BUCCAL PRN (04:30)
[2019-02-07] MEDS ORDERED: GLUCAGON 1 MG INJ IM PRN (04:30)
[2019-02-07] MEDS: INSULIN ASPART [NOVOLOG] 3 ML PEN SC SCH ×3 (05:00→12:38)
[2019-02-07] MEDS: DICLOFENAC SODIUM 1% GEL 100 GM TUBE TP SCH ×2 (05:54→10:38)
[2019-02-07] MEDS: PIPER-TAZO 2.25 GM (PMX) 50 ML IVPB SCH (08:47)
--- NOTE | 2019-02-07 11:15 | PDOCDIS ---
Discharge Instructions CONDITION [id number] Patient Condition: [id number] Good HOME CARE INSTRUCTIONS: [id number] Special Diet: [id number] RENAL ACTIVITY: [id number] Activity Restrictions: [id number] No Restrictions FOLLOW UP/APPOINTMENTS Follow-up Plan FOLLOW UP WITH YOUR PCP IN 1-2 WEEKS, FOLLOW UP WITH YOUR HD CENTER SCHEDULED ASHER ANSARI Feb 07, 2019 11:15
--- NOTE | 2019-02-07 13:32 | CONS ---
DATE OF ADMISSION: 02/06/2019 DATE OF CONSULTATION: 02/07/2019 TYPE OF CONSULTATION: Nephrology. REASON FOR CONSULTATION: End-stage renal disease. PHYSICIAN REQUESTING CONSULT: Dr. Arriola. HISTORY OF PRESENT ILLNESS: This is a 53-year-old female well known to me with past medical history of end-stage renal disease on dialysis Tuesday, Tuesday, Tuesday, who presents to [facility] with confusion from the dialysis center. The patient's dialysis was not performed as the p atient was confused and altered. As a result, she came into the emergency room and was subsequently admitted to telemetry for evaluation. On admission, the patient noted to be hyperkalemic with potassium 6.6 and BUN of 111. The patient wa s given Kayexalate, IV insulin and admitted to telemetry. The patient was also initiated on antibiot ic therapy for the possibility of systemic inflammatory response syndrome or sepsis. Upon my evaluation of the patient at this time, she is currently stable. She denies any fevers, chil ls, nausea, vomiting. PAST MEDICAL HISTORY: History of end-stage renal disease, history of anemia, history of mineral bone disorder, history of hypertension. PAST SURGICAL HISTORY: Status post AV fistula placement. FAMILY HISTORY: No family history of kidney disease. SOCIAL HISTORY: She does not drink, smoke or do drugs. REVIEW OF SYSTEMS: A 14-point review of systems was conducted. Pertinent positives stated in HPI, o therwise negative. PHYSICAL EXAMINATION: VITAL SIGNS: Blood pressure is 154/68, respirations 19, pulse 68, temperature 98.2. HEENT: Head is normocephalic. NECK: Supple. HEART: Regular rate. LUNGS: Show diminished breath sounds at the base. ABDOMEN: Soft, nontender to palpation without rebound or guarding. EXTREMITIES: Negative for clubbing, cyanosis, no edema. DERMATOLOGIC: No rashes. MUSCULOSKELETAL: No joint effusion. NEUROLOGIC: No focal deficits. MEDICATIONS: The patient medications have been reviewed. LABORATORY DATA: Reviewed. ASSESSMENT AND PLAN: This is a 53-year-old female who presents with: 1. End-stage renal disease. The patient had hemodialysis. We will dialyze for 3 hours 2k bath, jessica cium 2.5, ultrafiltrate as tolerated. 2. Hypokalemia. The patient is on dialysis on a low potassium bath. 3. Anemia. Monitor hemoglobin and hematocrit levels. 4. Mineral bone disorder, monitor calcium and phosphorus levels. 5. Acute encephalopathy, etiology is multifactorial secondary to medications, possible uremia. Plan is for hemodialysis. Continue to monitor. 6. Systemic inflammatory response syndrome, possible sepsis. Continue current antibiotic regimen. Follow up cultures. Dictated By: AMMY BERNAL DO NR/NTS Conf#: [id number] DID#: [id number] CC: ASHER ARRIOLA MD; AMMY BERNAL DO;*EndCC*
[2019-02-07] MEDS ORDERED: PREGABALIN 75 MG CAP PO ONE (14:30)
--- NOTE | 2019-02-07 15:38 | DS ---
Date/Time of Note Date/Time of Note DATE: 02/07/19 TIME: 15:34 Discharge Summary Admission/Discharge Info Admit Date/Time Feb 06, 2019 at 17:59 Discharge Date/Time February 07, 2019 Discharge Diagnosis 1. Acute toxic encephalopathy secondary to polypharmacy Patient has had multiple hospitalizations for toxic encephalopathy secondary to polypharmacy DC back to [facility], advised patient to decrease use of opiates and Ambien 2. SIRS likely secondary to above-resolved No indication for further antibiotics 3. End-stage renal disease Nephrology consultation with Dr. Singh appreciated, continue outpatient dialysis 4. Normocytic anemia like secondary to end-stage renal disease Monitor Patient Condition: Good Hospital Course Patient is a 53-year-old female brought in by ambulance from her dialysis clinic where she was reportedly altered. Per paramedics report patient was confused at dialysis center and dialysis was not performed and ambulance was called immediately. Patient does have a history of similar presentations for acute encephalopathy secondary to polypharmacy and patient did endorse taking [place] and Ambien. Patient mentation did stabilize, patient was seen by nephrology and dialysis was done. Patient stable for DC back to [facility] facility, on day of discharge patient's vitals, labs of exam are stable. Of note patient does exhibit opioid seeking behavior. Home Meds Reported Medications Lidocaine HCl (Aspercreme) 76.5 Gm Cream..g., 76.5 GM TP 11/03/18 Hydrocortisone* Topical (Hydrocortisone* Topical) 0.5%- 28.35 Gm Oint, 1 APPLIC TOP BID, TUB 1% hydrocortisone cream 11/03/18 Melatonin-Pyridoxine Hcl (Melatonin) 1-10 Mg Tablet, 1 TAB PO HS, TAB 11/03/18 Hydroxyzine Hcl* (Hydroxyzine Hcl*) 25 Mg Tablet, 25 MG PO QID, #40 TAB 11/03/18 Pantoprazole* (Pantoprazole*) 40 Mg Tablet.dr, 40 MG PO AC BREAKFAST, TAB 11/02/18 Furosemide* (Furosemide*) 40 Mg Tablet, 40 MG PO NEEDED, TAB 11/02/18 Zolpidem Tartrate* (Zolpidem Tartrate*) 5 Mg Tablet, 5 MG PO QHS PRN for INSOMNIA, #30 TAB 11/02/18 Diclofenac Sodium* (Voltaren* Gel) 1% -100 Gm Gel, 1 GM TOP Q6H, #1 TUB 11/02/18 Ropinirole Hcl* (Ropinirole Hcl*) 1 Mg Tablet, 1 MG PO TID, TAB 11/02/18 Sevelamer Hcl* (Renagel*) 800 Mg Tablet, 1600 MG PO WITH MEALS, TAB 11/02/18 Multivit/Ca Carb/B Cmplx/Fa* (Kymberly-Marlon*) 1 Tab Tab, 1 TAB PO BID, TAB 11/02/18 Insulin Aspart (Novolog Mix (70/30)) 100 Units/Ml Soln, 2 UNITS SC WITH MEALS, EA 2 UNITS-QAM AND 2-3 UNITS-QPM 11/02/18 Hydrocodone/Acetaminophen ([place] 5-325 Tablet) 1 Each Tablet, 1 EACH PO Q6H PRN for DIRECTED, TAB 11/02/18 Pregabalin* (Lyrica*) 75 Mg Capsule, 75 MG PO BID, CAP 11/02/18 Lorazepam* (Lorazepam*) 0.5 Mg Tablet, 0.5 MG PO Q8 PRN for ANXIETY, TAB 11/02/18 Lidocaine (Lmx 4) 30 Gm Cream.gm., 1 TP TID 11/02/18 Insulin Glargine* (Lantus*) 100 Unit/Ml Soln, 12 UNIT SC QHS, #1 VIAL 11/02/18 Ipratropium-Albuterol (Ipratropium-Albuterol) 0.5-3 Mg/3 Ml Ampul.neb, 3 ML INHALATION Q2H, #30 VIAL 11/02/18 Hydralazine Hcl* (Hydralazine Hcl*) 50 Mg Tab, 50 MG PO Q8H PRN for PRN, #60 TAB 11/02/18 Duloxetine Hcl* (Cymbalta*) 30 Mg Capsule.dr, 30 MG PO DAILY, CAP 11/02/18 Cyclobenzaprine Hcl* (Cyclobenzaprine Hcl*) 10 Mg Tablet, 10 MG PO Q12H, #60 TAB 11/02/18 Clonidine Hcl* (Clonidine Hcl*) 0.1 Mg Tab, 0.1 MG PO Q6 PRN for PRN, TAB 11/02/18 Diphenhydramine Hcl* (Benadryl*) 25 Mg Cap, 25 MG PO Q6H PRN for ITCHING, CAP TAKE 1 OR 2 TAB 11/02/18 Atorvastatin Calcium* (Atorvastatin Calcium*) 20 Mg Tablet, 20 MG PO QHS, #30 TAB 11/02/18 Aspirin* (Aspirin* EC) 81 Mg Tablet.dr, 81 MG PO DAILY, TAB 11/02/18 Amlodipine Besylate* (Norvasc*) 5 Mg Tablet, 5 MG PO BID, TAB 11/02/18 Acetaminophen* (Acetaminophen*) 325 Mg Tablet, 650 MG PO Q6H PRN for PAIN AND OR ELEVATED TEMP, #30 TAB 11/02/18 Follow-up Plan Follow-up with physicians at [facility] facility, follow-up with center Primary Care Provider Time spent on discharge: > 30 minutes ASHER ANSARI Feb 07, 2019 15:38
== END 2019-02-07 16:08 | DRG 91 ==
LOC: E/R 15:13 → MERGE 17:59 → TEL 17:59
PROVIDERS: ADMIT Internal Medicine; ATTEND Internal Medicine
PROC: 5A1D70Z Performance of Urinary Filtration, Intermittent, Less than 6 Hours Per Day (ICD-10-PCS; principal; 2019-02-07)
DX: G92 Toxic encephalopathy (principal); N18.6 End stage renal disease; I12.0 Hypertensive chronic kidney disease with stage 5 chronic kidney disease or end stage renal disease; R65.10 Systemic inflammatory response syndrome (SIRS) of non-infectious origin without acute organ dysfunction; D63.1 Anemia in chronic kidney disease; Z99.2 Dependence on renal dialysis; Z76.5 Malingerer [conscious simulation]
CPT/HCPCS: 36415; 70450; 71045; 80048; 80053; 80307; 82140; 82962; 83036; 83605; 83735; 84436; 84479; 84484; 85025; 85610; 85730; 87081; 87340; 90935; 93005; 94664; 96374; J1815; J2310; J2543; J3370; J7030; J7050